=== PATIENT | male | born 1945 | race African-American/Black ===

== ENCOUNTER 2017-03-28 13:09 | Inpatient (IN) | payer MEDICARE, OTHER ==
[~2017-03-28] VITALS: Ht 165.1 cm; Wt 90.7 kg
--- NOTE | 2017-03-28 18:00 | NUR ---
Admitted a 71 y/o male from [facility] with diagnosis of acute CVA. Transported via gurney. Patient is stable, alert, verbally responsive not in any form of acute distress. He denies any pain or discomfort. Family at bedside. Oriented patient and family to room, unit set-up, equipment and staff. Assisted to his needs. Routine admission care done. Reminded patient to use call light for assistance. Call light placed within reach. Informed Dr. Winchester who is in the facility of admission. Dr. Li Cortez, air traffic control specialist center for Dr. Meyers notified of admission and verified orders regarding medication reconciliation.
[2017-03-28] MEDS ORDERED: AMIO200T2 PEG (19:28)
[2017-03-28] MEDS ORDERED: [UNRECOGNIZED DRUG - CODE] IV (19:28)
[2017-03-28] MEDS ORDERED: CLON0.1T PEG (19:28)
[2017-03-28] MEDS ORDERED: POTA10TA15 PEG (19:28)
[2017-03-28] MEDS ORDERED: AMPI3VIA5 IVP (19:28)
[2017-03-28] MEDS ORDERED: DARB40VI SQ (19:28)
[2017-03-28] MEDS ORDERED: WARF7.5T4 PEG (19:28)
[2017-03-28] MEDS ORDERED: CHLO15MO MM (19:28)
[2017-03-28] MEDS ORDERED: ZINC30OI4 TP (19:28)
[2017-03-28] MEDS ORDERED: HYDR118S4 TP (19:28)
[2017-03-28] MEDS ORDERED: METO100T3 PEG (19:28)
[2017-03-28] MEDS ORDERED: [UNRECOGNIZED DRUG - OTHER] (19:28)
[2017-03-28] MEDS ORDERED: LEVE500T20 PEG (19:28)
[2017-03-28] MEDS ORDERED: FURO80TA3 PEG (19:28)
[2017-03-28] MEDS ORDERED: NYST15OI2 TP (19:28)
[2017-03-28] MEDS ORDERED: NITR0.4T48 SL (19:28)
[2017-03-28] MEDS ORDERED: LORA2VIA32 IVP (19:28)
[2017-03-28] MEDS ORDERED: CLON0.2T PEG (19:28)
[2017-03-28] MEDS ORDERED: LISI10TA5 PEG (19:28)
[2017-03-28] MEDS ORDERED: ACET-2154 PEG (19:28)
[2017-03-28] MEDS ORDERED: NITR1PAT8 TD (19:28)
[2017-03-28] MEDS ORDERED: FERR220S2 GT (19:28)
[2017-03-28] MEDS ORDERED: POLY15DR27 OP (19:28)
[2017-03-28] MEDS ORDERED: AMLO10TA2 PEG (19:28)
[2017-03-28] MEDS ORDERED: INSU100V28 (19:28)
[2017-03-28] MEDS ORDERED: HYDR100T27 PEG (19:28)
[2017-03-28] MEDS ORDERED: LANS30CA56 PEG (19:28)
[2017-03-28] MEDS ORDERED: FOLI1TAB16 PEG (19:28)
[2017-03-28] MEDS ORDERED: [UNRECOGNIZED DRUG - CODE] IV (19:28)
[2017-03-28] MEDS ORDERED: HYDR-3326 PEG (19:28)
[2017-03-28] MEDS ORDERED: IPRA0.2S48 IH (19:28)
[2017-03-28] MEDS ORDERED: TETR15DR86 EACHEYE (19:28)
[2017-03-28] MEDS ORDERED: NAPH15DR EACHEYE (19:28)
[2017-03-28] MEDS ORDERED: LABE50DI IV (19:28)
--- NOTE | 2017-03-28 19:30 | NUR ---
RECEIVED PATIENT AWAKE , ALERT AND ORIENTED TO NAME, BIRTHDATE, AND PLACE. REORIENTED TO TIME AND SITUATION. MILD WEAKNESS WITH ALL EXTREMITIES, BUT EQUALLY BILATERALLY. JOSE CRUZ AT 4 MM.FOLLOWS SIMPLE COMMANDS. UNDERSTANDS STATELESS WITH PRIMARY LANGUAGE BEING BANGLADESHI.SPEECH IS CLEAR, BUT HAS SOME DIFFICULTY FINDING WORDS AT TIMES.LEFT EYE APPEARS TO HAVE SLIGHT PTOSIS BUT DOES HAVE A HX OF EYE PROBLEMS REQUIRING EYE DROPS.STATES HE HAS NO VISUAL FIELD DEFICITSASSISTS WITH TURNING SIDE TO SIDE. REQUESTED URINAL AND VOIDED IN URINAL, HOWEVER DUMPED THE BOTTLE OVER IN THE BED.SO I WAS UNABLE TO RETRIEVE URINE FOR ORDERED U/A.REORIENTED TO ROOM, REHAB ROUTINE,POC,CALL LIGHT AND TV.INSTRUCTED TO CALL RN FOR ANY NEEDS HE MAY HAVE. CALL LIGHT WITHIN REACH AAT.
[2017-03-28] MEDS ORDERED: NUT.237L67 GT (19:31)
[2017-03-28] MEDS ORDERED: HYDR20VI4 IVP (19:51)
[2017-03-28] MEDS ORDERED: FOLI0.8T2 GT (19:51)
[2017-03-28] MEDS ORDERED: MORP2SYR IV (19:51)
[2017-03-28 20:21] VITALS: BP 140/84
[2017-03-28] MEDS ORDERED: hydrALAZINE HCL 25 MG TABLET PEG SCH (20:30)
[2017-03-28] MEDS ORDERED: HOME MED MISCELLANEOUS XX SCH (20:30)
[2017-03-28] MEDS ORDERED: CLONIDINE HCL 0.1 MG TABLET PEG PRN (20:30)
[2017-03-28] MEDS ORDERED: HYDROGEN PEROXIDE 3% 118 ML BOTTLE TP PRN (20:30)
[2017-03-28] MEDS ORDERED: NITROGLYCERIN 0.4 MG/TAB BOTTLE SL PRN (20:30)
[2017-03-28] MEDS ORDERED: HOME MED MISCELLANEOUS SQ SCH (20:30)
[2017-03-28] MEDS ORDERED: HYDROCODONE/APAP 5-325MG TABLET PEG PRN (20:30)
[2017-03-28] MEDS ORDERED: INSULIN REGULAR, HUMAN 300 UNIT/3 ML VIAL SQ PRN ×2 (20:30→21:30)
[2017-03-28] MEDS ORDERED: NYSTATIN/TRIAMCINOLONE CREAM 15 GM TUBE TOP SCH (21:00)
[2017-03-28] MEDS ORDERED: DEXTROSE 50% 50 ML DISP.SYRIN IV PRN ×3 (21:30→22:00)
[2017-03-28] MEDS: CHLORHEXIDINE GLUCONATE 15 ML MOUTHWASH MM SCH (21:30)
[2017-03-28] MEDS: AMIODARONE HCL 200 MG TABLET PEG SCH (21:31)
[2017-03-28] MEDS: LEVETIRACETAM 500 MG/5 ML LIQUID UDC PEG SCH (21:32)
[2017-03-28] MEDS: METOPROLOL TARTRATE 100 MG TABLET PEG SCH (21:33)
[2017-03-28] MEDS ORDERED: NYST30OI TP (21:36)
[2017-03-28] MEDS ORDERED: ACETAMINOPHEN 650 MG/20.3 ML LIQUID UDC PEG PRN (21:45)
[2017-03-28] MEDS: CLONIDINE HCL 0.2 MG TABLET PEG SCH (21:47)
[2017-03-28 22:00] VITALS: BP 148/74
[2017-03-28] MEDS: PIPERACILLIN/TAZOBACTAM/D5W 3.375 G in PREMIXED 1 EACH IV SCH (22:17)
[2017-03-28] MEDS: PANTOPRAZOLE ORAL SUSPENSION 40 MG SUSPDR.PKT GT SCH (22:17)
[2017-03-29] MEDS ORDERED: ACETAMINOPHEN 325 MG TABLET PEG SCH
[2017-03-29] MEDS ORDERED: BLOOD SUGAR DIAGNOSTIC 1 EACH STRIP VI SCH
[2017-03-29 00:09] VITALS: BP 116/74
[2017-03-29] MEDS: BLOOD SUGAR DIAGNOSTIC 1 EACH STRIP VI SCH ×4 (00:10→17:44)
--- NOTE | 2017-03-29 00:10 | NUR ---
NOVASOURCE G TUBE FEEDS INITIATED AT 50 ML/HR NO RESIDUALS NOTED.TUBE FEEDS HELD ONE HOUR BEFORE AND ONE HOUR AFTER MEDS GIVEN.G TUBE SITE IS CLEAR AND WITHOUT SIGNS OF INFECTION.CLEANED SITE WITH SOAP AND WATER.HOB ELEVATED AAT WHILE G TUBE FEEDS ARE RUNNING.
[2017-03-29] MEDS: INSULIN REGULAR, HUMAN 300 UNIT/3 ML VIAL SQ PRN ×3 (00:14→17:48)
[2017-03-29] MEDS: NOVASOURCE RENAL 1000 ML LIQUID GT PRN (00:15)
[2017-03-29] MEDS: IPRATROPIUM BROMIDE 0.5 MG/2.5 ML NEBU IH SCH ×4 (01:26→19:48)
[2017-03-29 06:00] VITALS: BP 134/82
--- NOTE | 2017-03-29 06:00 | NUR ---
SLEPT WELL AFTER AMBIEN WAS GIVEN. IN NAD THIS MORNING. NO RESPIRATORY DISTRESS OVER NIGHT ON OXYGEN AT 2 LPM/NASAL CANNULA. CALL LIGHT WITHIN REACH Addendum: 03/30/17 at 0037 by CHRISTIANO CONN RN DOCUMENTED ON WRONG PATIENT. DELETE THIS NOTE
--- NOTE | 2017-03-29 06:00 | NUR ---
TOLERATED G TUBE FEEDS AT 50 ML/HR THIS SHIFT WITH MINIMAL RESIDUALS OF 10-15 ML. NO N/V,ABDOMINAL TENDERNESS OR DISTENTION NOTED.LBM WAS 03/28/17.IVÁN MIDLINE PATENT AND MORNING LABS WERE DRAWN WITHOUT DIFFICULTY THIS MORNING. FLUSHED THEREAFTER WITH NORMAL SALINE. PATENCY MAINTAINED. NO OVERT SIGNS OF ADVERSE REACTION TO NEW ATB GIVEN HERE IN ARU OVER NIGHT.NO ESSENTIAL CHANGES TO NEURO ASSESSMENT FROMMY INITIAL SHIFT ASSESSMENT LAST NIGHT. CALL LIGHT WITHIN REACH AAT. APPEARS CPOMFORTABLE AND WITHOUT C/O
[2017-03-29] MEDS: CLONIDINE HCL 0.2 MG TABLET PEG SCH ×3 (06:19→22:23)
[2017-03-29] MEDS: hydrALAZINE HCL 50 MG TABLET PEG SCH ×4 (06:20→18:04)
--- NOTE | 2017-03-29 06:20 | NUR ---
ACCUCHECK THIS MORNING IS 129. NO INSULIN COVERAGE REQUIRED
[2017-03-29] MEDS: PIPERACILLIN/TAZOBACTAM/D5W 3.375 G in PREMIXED 1 EACH IV SCH (06:21)
[2017-03-29 06:22] LABS: BASOPHILS # (AUTO) 0.1 K/uL (0.0-8.0); BASOPHILS % (AUTO) 0.9 % (0.0-2.0); EOSINOPHILS # (AUTO) 0.4 K/uL (0.0-0.7); HEMOGLOBIN 10.5 G/DL (14.0-18.0); MEAN CORPUSCULAR HGB CONC 34 g/dL (32.0-37.0); MEAN CORPUSCULAR VOLUME 97.2 FL (82.0-92.0); MONOCYTES # (AUTO) 0.6 K/UL (0.1-1.30); MONOCYTES % (AUTO) 7.5 % (0.0-11.0); NEUTROPHILS # (AUTO) 5.4 K/UL (1.8-8.9); NEUTROPHILS % (AUTO) 63.6 % (38.5-71.5); PLATELET COUNT (AUTO) 321 K/UL (150-450); RED BLOOD CELL COUNT(AUTO) 3.19 MIL/UL (4.7-6.1); WHITE BLOOD COUNT (AUTO) 8.5 K/UL (4.0-11.2)
[2017-03-29 06:47] LABS: CREATININE 2.8 mg/dL (0.6-1.3); MAGNESIUM 1.8 mg/dL (1.8-2.4); PHOSPHOROUS 3.7 mg/dL (2.5-4.9)
[2017-03-29 06:52] LABS: POTASSIUM 3.8 mmol/L (3.5-5.1)
[2017-03-29 08:00] VITALS: BP 111/65
[2017-03-29] MEDS: AMLODIPINE 10 MG TABLET PEG SCH (09:00)
[2017-03-29] MEDS: Z GUARD REMEDY PASTE 57 GM TUBE TOP SCH ×2 (09:00→21:02)
[2017-03-29] MEDS: LISINOPRIL 10 MG TABLET PEG SCH (09:00)
[2017-03-29] MEDS: POLYVINYL ALCOHOL OPHT DROPS 15 ML BOTTLE OP SCH ×2 (09:48→17:44)
[2017-03-29] MEDS: PANTOPRAZOLE ORAL SUSPENSION 40 MG SUSPDR.PKT GT SCH ×2 (09:49→21:00)
[2017-03-29] MEDS: FOLIC ACID/VITAMIN B COMP W-C TABLET PEG SCH (09:49)
[2017-03-29] MEDS: LEVETIRACETAM 500 MG/5 ML LIQUID UDC PEG SCH ×2 (09:49→20:59)
[2017-03-29] MEDS: FERROUS SULFATE 300 MG/5 ML LIQUID UDC PEG SCH ×3 (09:49→17:45)
[2017-03-29] MEDS: POTASSIUM CHLORIDE 20 MEQ POWDER PACKET GT SCH (09:49)
[2017-03-29] MEDS: AMIODARONE HCL 200 MG TABLET PEG SCH ×2 (09:57→21:00)
[2017-03-29] MEDS: CHLORHEXIDINE GLUCONATE 15 ML MOUTHWASH MM SCH ×2 (10:00→21:01)
[2017-03-29] MEDS: FOLIC ACID 1 MG TABLET PEG SCH (10:00)
[2017-03-29] MEDS: NAPHAZOLINE/PHENIR OPHT DROP 15 ML BOTTLE EACHEYE SCH ×2 (10:01→17:45)
[2017-03-29] MEDS: FUROSEMIDE 80 MG TABLET PEG SCH (10:01)
[2017-03-29] MEDS: METOPROLOL TARTRATE 100 MG TABLET PEG SCH ×2 (10:03→20:59)
[2017-03-29] MEDS: NITROGLYCERIN 0.3 MG/HR TD SCH (10:05)
[2017-03-29] MEDS: NYSTATIN OINTMENT 15 GM TUBE TOP SCH ×2 (10:06→10:39)
[2017-03-29] MEDS: PIPERACILLIN/TAZOBACTAM/D5W 2.25 G in PREMIXED 1 EACH IV SCH ×2 (12:00→17:45)
[2017-03-29 15:28] LABS: *BILIRUBIN,URIN NEGATIVE (NEGATIVE); *BLOOD, URINE 1+ (NEGATIVE); *COLOR,URINE YELLOW (YELLOW); *KETONES,URINE NEGATIVE (NEGATIVE); *PROTEIN,URINE 1+ (NEGATIVE); *UROBILINOGEN,URINE 0.2 E.U./dl (NORMAL); LEUKOCYTE ESTERASE ,URINE 2+ (NEGATIVE); NITRITE, URINE NEGATIVE (NEGATIVE); UGLUCOSE NEGATIVE (NEGATIVE)
[2017-03-29 15:36] LABS: *CLARITY,URINE HAZY (CLEAR)
[2017-03-29 16:20] LABS: BACTERIA,URINE FEW /HPF (NONE SEEN); MUCUS,URINE FEW /LPF (0-FEW); RBC,URINE 20-50 /HPF (0-3); SQUAMOUS EPITHELIAL CELL,UR FEW /HPF (NONE SEEN); WBC,URINE 20-50 /HPF (0-3)
[2017-03-29] MEDS ORDERED: WARFARIN SODIUM 7.5 MG TABLET PEG SCH (17:00)
--- NOTE | 2017-03-29 18:48 | NUR ---
pt seen and stroke assessment done. pt provided meds and adhered to therapy and exercise. pt shows right side weakness and slow gaze during assessment. no signs of complications. pt provided blood sugar meds and provided anitbiotics. pt tolerated therapy without oxygen 92%. pt provided 2L. pt is seen by family and will continue to endorse any new treatments.
--- NOTE | 2017-03-29 19:30 | NUR ---
RECEIVED PATIENT AWAKE, ALERT AND ORIENTED TO NAME AND BIRTHDAY, AND SOMETIMES PLACE.REORIETED TO TIME AND SITUATION.IS INCONTINENT OF URINE IN DIAPER/ CHANGED AND KEPT CLEAN AND DRY.SKIN CONTINUES WITH DRY RASHES AT GROINS AND SACRUM, AND LEFT POSTERIOR BACK. NO OPEN AREAS OR DRAINAGE NOTED.COMFORTABLE, AND WITHOUT C/O PAIN OR SOB.MAINTAINED ON OXYGEN AT 2 LPM/NASAL CANNULA WITH SATS GREATER THAN 92%. CALL LIGHT WITHIN REACH AND BED ALARM ON AAT INSTRUCTED PATIENT TO CALL FOR ANY REQUESTS NEEDED
[2017-03-29 20:00] VITALS: BP 129/86
[2017-03-29 23:58] VITALS: BP 112/74
[2017-03-30] MEDS: BLOOD SUGAR DIAGNOSTIC 1 EACH STRIP VI SCH ×4 (00:03→19:03)
[2017-03-30] MEDS: PIPERACILLIN/TAZOBACTAM/D5W 2.25 G in PREMIXED 1 EACH IV SCH ×4 (00:04→19:03)
[2017-03-30] MEDS: IPRATROPIUM BROMIDE 0.5 MG/2.5 ML NEBU IH SCH ×3 (00:42→19:58)
[2017-03-30 05:45] VITALS: BP 136/82
[2017-03-30] MEDS: CLONIDINE HCL 0.2 MG TABLET PEG SCH ×3 (05:51→21:18)
[2017-03-30] MEDS: hydrALAZINE HCL 50 MG TABLET PEG SCH ×4 (05:51→19:03)
[2017-03-30] MEDS: INSULIN REGULAR, HUMAN 300 UNIT/3 ML VIAL SQ PRN (05:58)
--- NOTE | 2017-03-30 06:00 | NUR ---
SLEPT WELL LAST NIGHT. TOLERATED G TUBE FEEDS WITH MINIMAL RESIDUALS OF 10 ML. NO C/O NAUSEA OR EMESIS OR ABDOMINAL DISTENTION.FEEDS CONTINUE AT 50 ML/HR/ NOVASOURCE. NO SIGNS OF ASPIRATION. VITALS ARE STABLE THIS MORNING.NO C/O PAIN OR RESPIRATORY DISTRESS THIS SHIFT. O2 WEANED OFF TO ROOM AIR WITH SATS OVER 95%. INCONTINENT OF URINE AT TIMES, WITH ALSO VOIDING IN SMALL AMOUNTS AFTER REQUESTING FOR HELP WITH HIS URINAL. CALL LIGHT WITHIN REACH ATT.BED ALARM ON. IN nad AT THIS TIME
--- NOTE | 2017-03-30 07:17 | NUR ---
Patient received from shift production associate, resting comfortably in bed, in stable condition, no signs of acute distress noted. Respirations even and unlabored, VS WNL, O2 sat WNL on RA. Tolerating G-tube feedings with minimal residual of 10mL. No complaints of nausea or emesis. Feeding continuing Novasource at 50mL/HR. G-tube dressing clean, dry, and intact. No other verbalized needs at this time, all needs met. Safety and fall precautions maintained, call light within reach.
[2017-03-30] MEDS: PANTOPRAZOLE ORAL SUSPENSION 40 MG SUSPDR.PKT GT SCH ×2 (09:16→21:16)
[2017-03-30] MEDS: FOLIC ACID/VITAMIN B COMP W-C TABLET PEG SCH (09:16)
[2017-03-30] MEDS: POTASSIUM CHLORIDE 20 MEQ POWDER PACKET GT SCH (09:16)
[2017-03-30] MEDS: AMLODIPINE 10 MG TABLET PEG SCH (09:17)
[2017-03-30] MEDS: METOPROLOL TARTRATE 100 MG TABLET PEG SCH ×2 (09:17→21:18)
[2017-03-30] MEDS: AMIODARONE HCL 200 MG TABLET PEG SCH ×2 (09:17→21:17)
[2017-03-30] MEDS: FUROSEMIDE 80 MG TABLET PEG SCH (09:18)
[2017-03-30] MEDS: LISINOPRIL 10 MG TABLET PEG SCH (09:18)
[2017-03-30] MEDS: LEVETIRACETAM 500 MG/5 ML LIQUID UDC PEG SCH ×2 (09:18→21:16)
[2017-03-30] MEDS: CHLORHEXIDINE GLUCONATE 15 ML MOUTHWASH MM SCH ×2 (09:18→21:17)
[2017-03-30] MEDS: FERROUS SULFATE 300 MG/5 ML LIQUID UDC PEG SCH ×3 (09:18→17:43)
[2017-03-30] MEDS: FOLIC ACID 1 MG TABLET PEG SCH (09:18)
[2017-03-30] MEDS: NAPHAZOLINE/PHENIR OPHT DROP 15 ML BOTTLE EACHEYE SCH ×2 (09:19→17:43)
[2017-03-30] MEDS: TETRAHYDROZOLINE 0.05% OPHT DR 15 ML BOTTLE EACHEYE PRN (09:19)
[2017-03-30] MEDS: NITROGLYCERIN 0.3 MG/HR TD SCH (09:19)
[2017-03-30] MEDS: POLYVINYL ALCOHOL OPHT DROPS 15 ML BOTTLE OP SCH ×2 (09:19→17:43)
[2017-03-30] MEDS: Z GUARD REMEDY PASTE 57 GM TUBE TOP SCH ×2 (10:56→21:18)
[2017-03-30] MEDS: NYSTATIN OINTMENT 15 GM TUBE TOP SCH ×2 (10:56→21:19)
[2017-03-30 12:09] VITALS: BP 112/66
--- NOTE | 2017-03-30 13:45 | NUR ---
Dr. Whipple seen at bedside, discussed regarding tube feeding, to order an FNS consult for calorie counting and stop tube feedings, and see if able to tolerate diet without tube feedings. Patient and family made aware, verbalized understanding.
[2017-03-30] MEDS ORDERED: HEPARIN/D5W DRIP 500 ML IV PRN (14:15)
--- NOTE | 2017-03-30 15:00 | NUR ---
Received call from radiology regarding ordered CT scan, results verified with radiology regarding 2 subacute hemorrhages seen. Called Dr. Lynch via exchange phone number, told to call Dr. Whipple regarding results. Called and reached Dr. Whipple, said he is aware of the 2 subacute hemorrhages and to continue heparin drip as per ordered. motor vehicle assembly supervisor contacted regarding start and care of heparin drip. Awaiting further instructions.
--- NOTE | 2017-03-30 15:30 | NUR ---
Spoke to warehouse associate driver regarding plan of care, stated he will follow up with pharmacy regarding protocol of heparin drip. Awaiting orders to transfer to tele unit for tele monitoring vs starting and continuing heparin drip on ARU.
--- NOTE | 2017-03-30 16:10 | NUR ---
Received call from house fellow to start heparin drip here in ARU and monitor closely for signs of adverse bleeding. 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 Awaiting heparin bag to start infusion.
[2017-03-30] MEDS ORDERED: ENOXAPARIN SODIUM 30 MG/0.3 ML DISP.SYRIN SUBCUT SCH (17:00)
--- NOTE | 2017-03-30 17:00 | NUR ---
Heparin drip started per protocol. Verified with pharmacy and 2nd nurse. VS WNL, 120/73, 63, 95% on 2L O2 via NS. No other signs of acute distress, no signs of bleeding noted. Patient resting comfortably in bed, dosing intermittently in and out of light sleep, arousable with voice and light touch. Will continue to monitor for signs of bleeding.
[2017-03-30] MEDS: HEPARIN/D5W DRIP 500 ML IV PRN (17:09)
[2017-03-30] MEDS: WARFARIN SODIUM 2 MG TABLET PEG SCH (17:43)
[2017-03-30 20:47] VITALS: BP 118/71
--- NOTE | 2017-03-30 23:49 | NUR ---
Patient PTT results noted to be 35.9. Heparin dosing orders followed as ordered. Verified with 2nd nurse. Will continue to monitor patient.
[2017-03-31] MEDS: BLOOD SUGAR DIAGNOSTIC 1 EACH STRIP VI SCH ×4 (00:35→16:54)
[2017-03-31] MEDS: PIPERACILLIN/TAZOBACTAM/D5W 2.25 G in PREMIXED 1 EACH IV SCH ×4 (00:36→18:53)
[2017-03-31] MEDS: IPRATROPIUM BROMIDE 0.5 MG/2.5 ML NEBU IH SCH ×4 (00:49→19:15)
[2017-03-31] MEDS: hydrALAZINE HCL 50 MG TABLET PEG SCH ×4 (06:37→18:52)
[2017-03-31] MEDS: CLONIDINE HCL 0.2 MG TABLET PEG SCH ×3 (06:39→21:26)
--- NOTE | 2017-03-31 06:58 | NUR ---
Patient is awake and verbally responsive. Able to make needs known. Denies any pain and discomfort. No acute distress. No SOB. AM meds given. Lab in room to draw blood for PTT. Blood sugar is 99. No coverage needed. No s/s of hypoglycemia at this time. Kept clean and dry. Midline site dry and intact. No s/s of bleeding. All needs attended to promptly. Call light within reach. Will continue to monitor.
[2017-03-31] MEDS: FOLIC ACID/VITAMIN B COMP W-C TABLET PEG SCH (09:00)
[2017-03-31] MEDS: AMIODARONE HCL 200 MG TABLET PEG SCH ×2 (09:00→20:36)
[2017-03-31] MEDS: NAPHAZOLINE/PHENIR OPHT DROP 15 ML BOTTLE EACHEYE SCH ×2 (09:00→16:55)
[2017-03-31] MEDS: NYSTATIN OINTMENT 15 GM TUBE TOP SCH ×2 (09:00→20:37)
[2017-03-31] MEDS: Z GUARD REMEDY PASTE 57 GM TUBE TOP SCH ×2 (09:00→20:37)
[2017-03-31] MEDS: POLYVINYL ALCOHOL OPHT DROPS 15 ML BOTTLE OP SCH ×2 (09:00→16:55)
[2017-03-31 10:13] VITALS: BP 120/70
[2017-03-31] MEDS: NOVASOURCE RENAL 1000 ML LIQUID GT PRN (12:17)
[2017-03-31] MEDS: TETRAHYDROZOLINE 0.05% OPHT DR 15 ML BOTTLE EACHEYE PRN ×2 (12:17→12:34)
[2017-03-31] MEDS: HEPARIN/D5W DRIP 500 ML IV PRN ×2 (12:22→12:36)
[2017-03-31] MEDS: PANTOPRAZOLE ORAL SUSPENSION 40 MG SUSPDR.PKT GT SCH ×2 (12:37→20:35)
[2017-03-31] MEDS: POTASSIUM CHLORIDE 20 MEQ POWDER PACKET GT SCH (12:37)
[2017-03-31] MEDS: AMLODIPINE 10 MG TABLET PEG SCH (12:38)
[2017-03-31] MEDS: CHLORHEXIDINE GLUCONATE 15 ML MOUTHWASH MM SCH ×2 (12:38→20:35)
[2017-03-31] MEDS: NITROGLYCERIN 0.3 MG/HR TD SCH (12:39)
[2017-03-31] MEDS: LISINOPRIL 10 MG TABLET PEG SCH (12:39)
[2017-03-31] MEDS: METOPROLOL TARTRATE 100 MG TABLET PEG SCH ×2 (12:40→20:35)
[2017-03-31] MEDS: FOLIC ACID 1 MG TABLET PEG SCH (12:41)
[2017-03-31] MEDS: LEVETIRACETAM 500 MG/5 ML LIQUID UDC PEG SCH ×2 (12:41→20:35)
[2017-03-31] MEDS: FERROUS SULFATE 300 MG/5 ML LIQUID UDC PEG SCH ×3 (12:41→18:51)
[2017-03-31] MEDS: FUROSEMIDE 80 MG TABLET PEG SCH (12:42)
[2017-03-31] MEDS ORDERED: IPRATROPIUM BROMIDE 0.5 MG/2.5 ML NEBU IH SCH (13:30)
[2017-03-31] MEDS: WARFARIN SODIUM 2 MG TABLET PEG SCH (18:51)
[2017-03-31 20:09] VITALS: BP 130/80
[2017-04-01] MEDS: PIPERACILLIN/TAZOBACTAM/D5W 2.25 G in PREMIXED 1 EACH IV SCH ×4 (00:16→18:05)
[2017-04-01] MEDS: BLOOD SUGAR DIAGNOSTIC 1 EACH STRIP VI SCH ×4 (00:17→18:06)
[2017-04-01] MEDS: hydrALAZINE HCL 50 MG TABLET PEG SCH ×4 (00:19→18:12)
[2017-04-01] MEDS: IPRATROPIUM BROMIDE 0.5 MG/2.5 ML NEBU IH SCH ×4 (00:34→19:15)
[2017-04-01] MEDS: HEPARIN/D5W DRIP 500 ML IV PRN ×2 (04:37→20:45)
[2017-04-01] MEDS: CLONIDINE HCL 0.2 MG TABLET PEG SCH ×3 (06:13→22:46)
--- NOTE | 2017-04-01 07:45 | NUR ---
Awake, alert, oriented x 3, able to verbalized needs and follow commands, able to move all extremities on purpose. Heparin drip infusing to midline LUE. PTT= 68.1, No change in rate of 1600 units at 32 ml/hr.
[2017-04-01 08:00] VITALS: BP 130/69
[2017-04-01] MEDS: NAPHAZOLINE/PHENIR OPHT DROP 15 ML BOTTLE EACHEYE SCH ×2 (09:20→18:05)
[2017-04-01] MEDS: TETRAHYDROZOLINE 0.05% OPHT DR 15 ML BOTTLE EACHEYE PRN (09:20)
[2017-04-01] MEDS: POLYVINYL ALCOHOL OPHT DROPS 15 ML BOTTLE OP SCH ×2 (09:21→18:04)
[2017-04-01] MEDS: PANTOPRAZOLE ORAL SUSPENSION 40 MG SUSPDR.PKT GT SCH ×2 (09:21→21:35)
[2017-04-01] MEDS: POTASSIUM CHLORIDE 20 MEQ POWDER PACKET GT SCH (09:21)
[2017-04-01] MEDS: AMLODIPINE 10 MG TABLET PEG SCH (09:22)
[2017-04-01] MEDS: LISINOPRIL 10 MG TABLET PEG SCH (09:23)
[2017-04-01] MEDS: NITROGLYCERIN 0.3 MG/HR TD SCH (09:23)
[2017-04-01] MEDS: FUROSEMIDE 80 MG TABLET PEG SCH (09:24)
[2017-04-01] MEDS: FOLIC ACID 1 MG TABLET PEG SCH (09:24)
[2017-04-01] MEDS: METOPROLOL TARTRATE 100 MG TABLET PEG SCH ×2 (09:24→21:19)
[2017-04-01] MEDS: LEVETIRACETAM 500 MG/5 ML LIQUID UDC PEG SCH ×2 (09:24→21:33)
[2017-04-01] MEDS: FOLIC ACID/VITAMIN B COMP W-C TABLET PEG SCH (09:24)
[2017-04-01] MEDS: CHLORHEXIDINE GLUCONATE 15 ML MOUTHWASH MM SCH ×2 (09:25→21:18)
[2017-04-01] MEDS: FERROUS SULFATE 300 MG/5 ML LIQUID UDC PEG SCH ×3 (09:25→18:05)
[2017-04-01] MEDS: AMIODARONE HCL 200 MG TABLET PEG SCH ×2 (09:25→21:18)
[2017-04-01] MEDS: NYSTATIN OINTMENT 15 GM TUBE TOP SCH ×2 (09:26→21:23)
[2017-04-01] MEDS: Z GUARD REMEDY PASTE 57 GM TUBE TOP SCH ×2 (09:27→21:24)
--- NOTE | 2017-04-01 09:48 | NUR ---
Back from PT, assisted to the bathroom. Medication given. GT site Trach site, cleaned and dressing change
--- NOTE | 2017-04-01 14:00 | NUR ---
MEDICAL BILLER at bedside, passed for regular diet, thin liquids
--- NOTE | 2017-04-01 16:11 | NUR ---
Assistant Professor Of Psychology: SW met with patient at bedside to assess needs and provide support. Pt is a 71-year-old male admitted to ARU for CVA, and presented with chief complaint of weakness and difficulty performing ADLs. Pt appeared irritable and aggravated, and stated "everytime I sleep, someone comes in" and "I'm sleepy." SW later returned when pt's , Emily [phone] was at bedside. Per , the pt has a strong support system at home. She reported she and her both live in a Intermediate Apartment. Pt reported their son, Geraldo [phone] is very involved and supportive with their care. reported she may need assistance with DME upon discharge. Additionalyl, pt appears to be having a difficult time coping with functional decline and impaired ambulation. There is no hx of depression noted or reported by family. SW will provide support to pt and family during hospitalization. SW will provide linkage to resources (case management, outside referrals all come under this.
--- NOTE | 2017-04-01 16:20 | NUR ---
Conference Director: SW met with patient at bedside to assess needs and provide support. Pt is a 71-year-old male admitted to ARU for CVA, and presented with chief complaint of weakness and difficulty performing ADLs. Pt appeared irritable and aggravated, and stated "everytime I sleep, someone comes in" and "I'm sleepy." SW later returned when pt's , Emily [phone] was at bedside. Per , the pt has a strong support system at home. She reported she and her both live in a [address] Apart[address]. Pt reported their son, Geraldo [phone] is very involved and supportive with their care. reported she may need assistance with DME upon discharge. Pt appeared to be having a difficult time coping with functional decline and impaired ambulation. He declined to meet with SW at this time, therefore information was obtained through his . There is no hx of depression noted or reported by family. SW will provide support to pt and family during hospitalization. SW will provide linkage to resources (case management). SW will provide supportive counseling to address patients issues of loss related to his decline in functioning, hospitalization on the unit, and recent stroke. SW will provide referrals for outpatient treatment for counseling (stroke support).
--- NOTE | 2017-04-01 16:30 | NUR ---
Bed bath given. Repositioned comfortably
[2017-04-01] MEDS ORDERED: WARFARIN SODIUM 2 MG TABLET PEG SCH (17:00)
[2017-04-01] MEDS ORDERED: WARFARIN SODIUM 3 MG TABLET PEG SCH (17:00)
--- NOTE | 2017-04-01 18:00 | NUR ---
Regular diet served, assisted by spouse, able to consume 80% of food served. Kept dry and comfortable.
--- NOTE | 2017-04-01 19:15 | NUR ---
REC'D BEDSIDE REPORT, PT COMFORTABLE WATCHING THE TV. HAPARIN INFUSING VIA IV PUMP.
[2017-04-01 20:00] VITALS: BP 105/64
[2017-04-01] MEDS: Z GUARD REMEDY PASTE 57 GM TUBE TOP PRN (21:21)
[2017-04-02] MEDS: PIPERACILLIN/TAZOBACTAM/D5W 2.25 G in PREMIXED 1 EACH IV SCH ×5 (00:07→23:36)
[2017-04-02] MEDS: hydrALAZINE HCL 50 MG TABLET PEG SCH ×2 (00:08→06:25)
[2017-04-02] MEDS: BLOOD SUGAR DIAGNOSTIC 1 EACH STRIP VI SCH ×5 (00:15→23:36)
[2017-04-02] MEDS: IPRATROPIUM BROMIDE 0.5 MG/2.5 ML NEBU IH SCH ×4 (01:23→19:19)
[2017-04-02] MEDS: CLONIDINE HCL 0.2 MG TABLET PEG SCH (06:26)
[2017-04-02 06:44] VITALS: BP 126/75
--- NOTE | 2017-04-02 07:16 | NUR ---
BEDSIDE SBAR REPORT TO URBANO COLUNGA. PT PROGRESSING TOWARDS GOALS, CONTINUE PLAN OF CARE.
[2017-04-02 07:35] LABS: BASOPHILS % (AUTO) 0.6 % (0.0-2.0); EOSINOPHILS # (AUTO) 0.3 K/uL (0.0-0.7); EOSINOPHILS % (AUTO) 3.4 % (0.0-7.0); HEMATOCRIT 31.1 % (40-50); HEMOGLOBIN 10.5 G/DL (14.0-18.0); LYMPHOCYTES # (AUTO) 1.9 K/UL (0.8-4.8); LYMPHOCYTES % (AUTO) 25.4 % (20.5-51.5); MEAN CORPUSCULAR HEMOGLOBIN 31.6 UUG (27.0-31.0); MEAN CORPUSCULAR HGB CONC 34 g/dL (32.0-37.0); MEAN CORPUSCULAR VOLUME 93.2 FL (82.0-92.0); MONOCYTES # (AUTO) 0.6 K/UL (0.1-1.30); MONOCYTES % (AUTO) 7.8 % (0.0-11.0); NEUTROPHILS # (AUTO) 4.8 K/UL (1.8-8.9); NEUTROPHILS % (AUTO) 62.8 % (38.5-71.5); PLATELET COUNT (AUTO) 277 K/UL (150-450); RED BLOOD CELL COUNT(AUTO) 3.33 MIL/UL (4.7-6.1); WHITE BLOOD COUNT (AUTO) 7.6 K/UL (4.0-11.2)
--- NOTE | 2017-04-02 07:54 | NUR ---
Awake, alert, oriented x 3, on moderate high back rest. Heparin drip infusing at 1600 units at 32 ml/hr to LUE midline. Waiting for PTT report. Bed alarm on
[2017-04-02 08:00] VITALS: BP 123/77
[2017-04-02 08:12] LABS: BILIRUBIN,TOTAL 0.4 mg/dL (0.2-1.0); CREATININE 2.7 mg/dL (0.6-1.3); MAGNESIUM 1.3 mg/dL (1.8-2.4); PHOSPHOROUS 4.2 mg/dL (2.5-4.9); POTASSIUM 3.3 mmol/L (3.5-5.1); TOTAL PROTEIN, SERUM 8.3 g/dL (6.4-8.2)
--- NOTE | 2017-04-02 09:18 | NUR ---
Received PTT Report. Heparin adjusted/decreased to 1400 units/hr.
[2017-04-02] MEDS: NAPHAZOLINE/PHENIR OPHT DROP 15 ML BOTTLE EACHEYE SCH ×2 (09:37→18:16)
[2017-04-02] MEDS: PANTOPRAZOLE ORAL SUSPENSION 40 MG SUSPDR.PKT GT SCH (09:44)
[2017-04-02] MEDS: POLYVINYL ALCOHOL OPHT DROPS 15 ML BOTTLE OP SCH ×2 (09:44→18:16)
[2017-04-02] MEDS: POTASSIUM CHLORIDE 20 MEQ POWDER PACKET GT SCH (09:44)
[2017-04-02] MEDS: CHLORHEXIDINE GLUCONATE 15 ML MOUTHWASH MM SCH ×2 (09:44→20:51)
[2017-04-02] MEDS: LEVETIRACETAM 500 MG/5 ML LIQUID UDC PEG SCH (09:45)
[2017-04-02] MEDS: FOLIC ACID 1 MG TABLET PEG SCH (09:45)
[2017-04-02] MEDS: FUROSEMIDE 80 MG TABLET PEG SCH (09:45)
[2017-04-02] MEDS: FERROUS SULFATE 300 MG/5 ML LIQUID UDC PEG SCH (09:45)
[2017-04-02] MEDS: AMIODARONE HCL 200 MG TABLET PEG SCH (09:45)
[2017-04-02] MEDS: FOLIC ACID/VITAMIN B COMP W-C TABLET PEG SCH (09:46)
[2017-04-02] MEDS: AMLODIPINE 10 MG TABLET PEG SCH (09:46)
[2017-04-02] MEDS: METOPROLOL TARTRATE 100 MG TABLET PEG SCH (09:46)
[2017-04-02] MEDS: NITROGLYCERIN 0.3 MG/HR TD SCH (09:47)
[2017-04-02] MEDS: LISINOPRIL 10 MG TABLET PEG SCH (09:47)
[2017-04-02] MEDS: NYSTATIN OINTMENT 15 GM TUBE TOP SCH ×2 (09:48→20:53)
[2017-04-02] MEDS: Z GUARD REMEDY PASTE 57 GM TUBE TOP SCH ×2 (09:48→20:53)
--- NOTE | 2017-04-02 10:15 | NUR ---
Discussed with Pharmacist, Heparin drip dose adjusted according 80 kg weight, rate changed to 1450 units at 29 ml/hr
--- NOTE | 2017-04-02 11:00 | NUR ---
Bed bath given. Repositioned comfortably.
[2017-04-02] MEDS ORDERED: HYDROCODONE/APAP 5-325MG TABLET PO PRN (12:00)
[2017-04-02] MEDS ORDERED: CLONIDINE HCL 0.1 MG TABLET PO PRN (12:00)
[2017-04-02] MEDS ORDERED: ACETAMINOPHEN 650 MG/20.3 ML LIQUID UDC PO PRN (12:00)
[2017-04-02] MEDS ORDERED: ACETAMINOPHEN 325 MG TABLET PO PRN (12:45)
[2017-04-02] MEDS: FERROUS SULFATE 325 MG TABEC PO SCH ×2 (12:51→18:16)
[2017-04-02] MEDS ORDERED: FERROUS SULFATE 300 MG/5 ML LIQUID UDC PO SCH (13:00)
[2017-04-02] MEDS: hydrALAZINE HCL 50 MG TABLET PO SCH ×3 (13:03→23:38)
[2017-04-02] MEDS: INSULIN REGULAR, HUMAN 300 UNIT/3 ML VIAL SQ PRN (13:05)
[2017-04-02] MEDS ORDERED: POTASSIUM CHLORIDE 20 MEQ TAB.PRT.SR PO ONE (13:30)
--- NOTE | 2017-04-02 13:30 | NUR ---
Mg 1.3; K 3.3. K dur and Mag Ox po given as ordered.
[2017-04-02] MEDS: MAGNESIUM OXIDE 400 MG TABLET PO SCH ×2 (13:52→18:17)
[2017-04-02] MEDS: HEPARIN/D5W DRIP 500 ML IV PRN (13:57)
[2017-04-02] MEDS: CLONIDINE HCL 0.2 MG TABLET PO SCH ×2 (14:00→22:21)
[2017-04-02] MEDS ORDERED: WARFARIN SODIUM 3 MG TABLET PO SCH ×2 (17:00)
[2017-04-02] MEDS: PANTOPRAZOLE SODIUM 40 MG TABLET.DR PO SCH (18:17)
[2017-04-02] MEDS: WARFARIN SODIUM 10 MG TABLET PO SCH (18:18)
--- NOTE | 2017-04-02 18:56 | NUR ---
Assisted to the bathroom with loose BM. Back to bed, repositioned comfortably. /family at bedside
--- NOTE | 2017-04-02 19:30 | NUR ---
RESTING IN BED COMFORTABLY. FAMILY MEMBERS AT BEDSIDE. NO ACUTE DISTRESS NOTED. SAFETY INITIATED. ON HEPARIN DRIP RUNNING AT 1450 UNITS/HR (29CC/HR). WILL CONTINUE TO MONITOR
[2017-04-02] MEDS: AMIODARONE HCL 200 MG TABLET PO SCH (20:51)
[2017-04-02] MEDS: LEVETIRACETAM 500 MG TABLET PO SCH (20:52)
[2017-04-02] MEDS: METOPROLOL TARTRATE 100 MG TABLET PO SCH (20:52)
[2017-04-02] MEDS ORDERED: PANTOPRAZOLE ORAL SUSPENSION 40 MG SUSPDR.PKT PO SCH (21:00)
[2017-04-02] MEDS ORDERED: LEVETIRACETAM 500 MG/5 ML LIQUID UDC PO SCH (21:00)
[2017-04-02 21:05] VITALS: BP 132/80
--- NOTE | 2017-04-02 23:39 | NUR ---
HYDRALAZINE NOT GIVEN, PATIENT IS SLEEPY, CAN BE AWAKEN BUT EASILY FALLS BACK TO SLEEP. BP TAKEN AND RECORDED
[2017-04-03] MEDS: IPRATROPIUM BROMIDE 0.5 MG/2.5 ML NEBU IH SCH ×4 (01:13→19:32)
[2017-04-03] MEDS: PIPERACILLIN/TAZOBACTAM/D5W 2.25 G in PREMIXED 1 EACH IV SCH ×3 (06:01→17:00)
[2017-04-03] MEDS: PANTOPRAZOLE SODIUM 40 MG TABLET.DR PO SCH ×2 (06:02→16:37)
[2017-04-03] MEDS: hydrALAZINE HCL 50 MG TABLET PO SCH ×3 (06:02→16:38)
[2017-04-03] MEDS: CLONIDINE HCL 0.2 MG TABLET PO SCH ×3 (06:02→21:31)
[2017-04-03] MEDS: BLOOD SUGAR DIAGNOSTIC 1 EACH STRIP VI SCH ×3 (06:03→16:59)
--- NOTE | 2017-04-03 06:39 | NUR ---
SLEPT INTERMITTENTLY DURING THE SHIFT. ALERT BUT FORGETFUL, CONVERSANT. NO SPEECH DIFFICULTY. CONTINUES ON HEPARIN DRIP AT 29CC/HR (1450 UNITS/HR). NO S/SX OF BLEEDING NOTED. KEPT CLEAN AND DRY AT ALL TIMES. ALL DUE MEDS GIVEN ORDERED. SKIN CARE PROVIDED. CALL LIGHT WITHIN REACH.
--- NOTE | 2017-04-03 07:28 | NUR ---
UNABLE TO FILL UP IV SPREADSHEET IN REGARDS TO HEPARIN DRIP. FROM 1930 TO 2358 ON 04/02/17 145CC WAS INFUSED. AND FROM 0000 TO 0600 TODAY, 174CC WAS INFUSED. PHARMACY AND INCOMING SHIFT MADE AWARE
[2017-04-03 08:00] VITALS: BP 125/73
--- NOTE | 2017-04-03 08:30 | NUR ---
PT.A/A/OX3 EATING LUNCH,WATCHING TV,NO S/S OF DISTRESS ,DENIES PAIN @ TIME.
[2017-04-03] MEDS: HEPARIN/D5W DRIP 500 ML IV PRN (08:52)
[2017-04-03] MEDS: FERROUS SULFATE 325 MG TABEC PO SCH ×3 (08:52→16:39)
[2017-04-03] MEDS: POTASSIUM CHLORIDE 20 MEQ TAB.PRT.SR PO SCH (08:53)
[2017-04-03] MEDS: FOLIC ACID/VITAMIN B COMP W-C TABLET PO SCH (08:53)
[2017-04-03] MEDS: LISINOPRIL 10 MG TABLET PO SCH (08:53)
[2017-04-03] MEDS: AMLODIPINE 10 MG TABLET PO SCH (08:54)
[2017-04-03] MEDS: AMIODARONE HCL 200 MG TABLET PO SCH ×2 (08:54→21:27)
[2017-04-03] MEDS: FOLIC ACID 1 MG TABLET PO SCH (08:54)
[2017-04-03] MEDS: LEVETIRACETAM 500 MG TABLET PO SCH ×2 (08:54→21:27)
[2017-04-03] MEDS: FUROSEMIDE 80 MG TABLET PO SCH (08:55)
[2017-04-03] MEDS: CHLORHEXIDINE GLUCONATE 15 ML MOUTHWASH MM SCH ×2 (08:55→21:29)
[2017-04-03] MEDS: METOPROLOL TARTRATE 100 MG TABLET PO SCH ×2 (08:55→21:27)
[2017-04-03] MEDS: NITROGLYCERIN 0.3 MG/HR TD SCH (08:56)
[2017-04-03] MEDS: TETRAHYDROZOLINE 0.05% OPHT DR 15 ML BOTTLE EACHEYE PRN ×2 (08:57→16:41)
[2017-04-03] MEDS: POLYVINYL ALCOHOL OPHT DROPS 15 ML BOTTLE OP SCH ×2 (08:57→16:41)
[2017-04-03] MEDS: Z GUARD REMEDY PASTE 57 GM TUBE TOP SCH ×2 (08:58→21:28)
[2017-04-03] MEDS: NAPHAZOLINE/PHENIR OPHT DROP 15 ML BOTTLE EACHEYE SCH ×2 (08:58→16:41)
[2017-04-03] MEDS: NYSTATIN OINTMENT 15 GM TUBE TOP SCH ×2 (08:59→21:28)
[2017-04-03] MEDS ORDERED: POTASSIUM CHLORIDE 20 MEQ POWDER PACKET PO SCH (09:00)
[2017-04-03] MEDS: INSULIN REGULAR, HUMAN 300 UNIT/3 ML VIAL SQ PRN (12:19)
--- NOTE | 2017-04-03 14:24 | NUR ---
FAMILY MEMBERS AT BEDSIDE,UPDATED WITH PT.PLAN OF CARE,NO CHANGES IN PT.CONDITION.
--- NOTE | 2017-04-03 14:37 | NUR ---
TEAM CONFERENCE MEETING 04/03/17
--- NOTE | 2017-04-03 14:42 | NUR ---
pt.SBP 103 AT BEDSIDE,REFUSED FROM CLONIDINE MED.
[2017-04-03] MEDS: WARFARIN SODIUM 10 MG TABLET PO SCH (16:39)
--- NOTE | 2017-04-03 18:05 | NUR ---
PT.WAS SEEN BY ,FAMILY AT BEDSIDE UPDATED WITH PT.CONDITION AND PLAN OF CARE.
--- NOTE | 2017-04-03 18:44 | NUR ---
PT.WATCHING TV NO S/S OF ACUTE DISTRESS OR PAIN NOTED.
[2017-04-03 21:08] VITALS: BP 126/74
[2017-04-03 21:40] VITALS: BP 126/74
[2017-04-03 23:24] VITALS: BP 130/86
[2017-04-04] MEDS: BLOOD SUGAR DIAGNOSTIC 1 EACH STRIP VI SCH ×4 (00:09→17:27)
[2017-04-04] MEDS: hydrALAZINE HCL 50 MG TABLET PO SCH ×4 (00:09→17:27)
[2017-04-04] MEDS: PIPERACILLIN/TAZOBACTAM/D5W 2.25 G in PREMIXED 1 EACH IV SCH ×4 (00:09→17:24)
[2017-04-04] MEDS: IPRATROPIUM BROMIDE 0.5 MG/2.5 ML NEBU IH SCH ×4 (00:55→20:10)
[2017-04-04] MEDS ORDERED: HEPARIN/D5W DRIP 500 ML ONE (01:55)
[2017-04-04] MEDS: HEPARIN/D5W DRIP 500 ML IV PRN (03:47)
--- NOTE | 2017-04-04 05:28 | NUR ---
PT RESTING QUIETLY; ASSISTANCE TO THE BR PERIODICALLY; NO COMPLAINTS OF PAIN NOTED
[2017-04-04] MEDS: CLONIDINE HCL 0.2 MG TABLET PO SCH ×3 (06:37→21:02)
[2017-04-04] MEDS: PANTOPRAZOLE SODIUM 40 MG TABLET.DR PO SCH ×2 (06:38→17:26)
[2017-04-04] MEDS: FUROSEMIDE 80 MG TABLET PO SCH (08:45)
[2017-04-04] MEDS: NAPHAZOLINE/PHENIR OPHT DROP 15 ML BOTTLE EACHEYE SCH ×2 (08:45→17:25)
[2017-04-04] MEDS: CHLORHEXIDINE GLUCONATE 15 ML MOUTHWASH MM SCH ×2 (08:45→21:00)
[2017-04-04 08:46] VITALS: BP 114/72
[2017-04-04] MEDS: FOLIC ACID/VITAMIN B COMP W-C TABLET PO SCH (08:46)
[2017-04-04] MEDS: LISINOPRIL 10 MG TABLET PO SCH (08:46)
[2017-04-04] MEDS: FERROUS SULFATE 325 MG TABEC PO SCH ×3 (08:47→17:26)
[2017-04-04] MEDS: POTASSIUM CHLORIDE 20 MEQ TAB.PRT.SR PO SCH (08:47)
[2017-04-04] MEDS: LEVETIRACETAM 500 MG TABLET PO SCH ×2 (08:47→21:02)
[2017-04-04] MEDS: FOLIC ACID 1 MG TABLET PO SCH (08:47)
[2017-04-04] MEDS: AMIODARONE HCL 200 MG TABLET PO SCH ×2 (08:47→21:01)
[2017-04-04] MEDS: METOPROLOL TARTRATE 100 MG TABLET PO SCH ×2 (08:47→21:02)
[2017-04-04] MEDS: AMLODIPINE 10 MG TABLET PO SCH (08:48)
[2017-04-04] MEDS: POLYVINYL ALCOHOL OPHT DROPS 15 ML BOTTLE OP SCH ×2 (08:49→17:25)
[2017-04-04] MEDS: NITROGLYCERIN 0.3 MG/HR TD SCH (08:51)
[2017-04-04] MEDS: Z GUARD REMEDY PASTE 57 GM TUBE TOP SCH ×2 (08:53→21:03)
[2017-04-04] MEDS: NYSTATIN OINTMENT 15 GM TUBE TOP SCH ×2 (08:53→21:04)
--- NOTE | 2017-04-04 09:19 | NUR ---
DR. Morrell in the unit and orders to stop heparin drip at this time. and to keep patient NPO for lunch. Also to hold heparin x6 hours post procedure patient will be going for G-tube removal at 1500 today. heparin to be resumed 6 hours post procedure.
--- NOTE | 2017-04-04 15:55 | NUR ---
DR. Pineda in to remove G-tube. After removal pressure dressing applied for 15 minutes. Minimal bleeding noted at this time. Family at bedside.
--- NOTE | 2017-04-04 16:21 | NUR ---
A PTT for 2200 ordered per protocol and after consulting with pharmacist. Incoming shift will be endorse orders received to resume Heparin drip.
[2017-04-04 21:45] VITALS: BP 118/68
[2017-04-04] MEDS ORDERED: WARFARIN SODIUM 10 MG TABLET PO ONE (22:00)
--- NOTE | 2017-04-04 22:47 | NUR ---
Received patient PTT results of 29.6. Called Dr. Luigi lentz for orders. No answer. Will call back again. Patient in no acute distress at this time. Addendum: 04/04/17 at 2301 by KEVIN PICKERING RN [id number]: Called Dr. Luigi lentz again and spoke with Mike. Dr. Cortez occupational medicine physician and he will page Awaiting call back.
--- NOTE | 2017-04-04 23:30 | NUR ---
Received call back from medication coordinator Dr. Li Cortez. Made aware of current PTT results of 29.6 and previous PTT 53.9. Dr. Cortez made aware that patient was on Heparin drip previously and was stopped due to removal of G-tube. Per Dr. Morrell orders, may resume Heparin drip [address] Cortez made aware. Per Dr. Cortez no bolus and to resume Heparin drip per protocol. Clarified orders with Dr. Cortez and Guitar Player Joaquina. New orders noted and carried out.
[2017-04-05] MEDS ORDERED: HEPARIN/D5W DRIP 500 ML ONE (00:26)
[2017-04-05] MEDS: hydrALAZINE HCL 50 MG TABLET PO SCH ×4 (00:32→17:11)
[2017-04-05] MEDS: BLOOD SUGAR DIAGNOSTIC 1 EACH STRIP VI SCH ×5 (00:32→21:04)
[2017-04-05] MEDS: PIPERACILLIN/TAZOBACTAM/D5W 2.25 G in PREMIXED 1 EACH IV SCH (00:33)
[2017-04-05] MEDS: HEPARIN/D5W DRIP 500 ML IV PRN ×2 (00:37→21:00)
--- NOTE | 2017-04-05 00:37 | NUR ---
Heparin drip started per protocol. Verified with Sheet Roller Operator and 2nd nurse. Patient is alert, oriented. Verbally responsive. Able to make needs known. On room air. No c/o pain and discomfort. No acute distress. No SOB. Midline dressing intact. Kept clean and dry. No s/s of bleeding at this time. Patient resting comfortably in bed. All needs attended to promptly. Call light within reach. Will continue to monitor. Will re-check PTT in 6 hours.
[2017-04-05] MEDS: IPRATROPIUM BROMIDE 0.5 MG/2.5 ML NEBU IH SCH ×4 (01:30→20:05)
--- NOTE | 2017-04-05 02:09 | NUR ---
Pt refused HHN tx . CRISTINE Samuels aware.
[2017-04-05] MEDS: CLONIDINE HCL 0.2 MG TABLET PO SCH ×2 (06:31→13:49)
--- NOTE | 2017-04-05 06:40 | NUR ---
Patient alert and oriented, verbally able to let needs known. Heparin continues to run, no signs of bleeding noted. Patient had no complains of pain or discomfort, no signs of respiratory distress. Maintained clean and dry throughout the night, all needs attended to.
[2017-04-05] MEDS: PANTOPRAZOLE SODIUM 40 MG TABLET.DR PO SCH ×2 (07:00→16:33)
[2017-04-05 08:19] LABS: BASOPHILS # (AUTO) 0.1 K/uL (0.0-8.0); BASOPHILS % (AUTO) 0.6 % (0.0-2.0); EOSINOPHILS # (AUTO) 0.3 K/uL (0.0-0.7); EOSINOPHILS % (AUTO) 2.7 % (0.0-7.0); HEMATOCRIT 30.9 % (40-50); HEMOGLOBIN 10.7 G/DL (14.0-18.0); LYMPHOCYTES # (AUTO) 2.2 K/UL (0.8-4.8); MEAN CORPUSCULAR HEMOGLOBIN 33.2 UUG (27.0-31.0); MEAN CORPUSCULAR HGB CONC 35 g/dL (32.0-37.0); MEAN CORPUSCULAR VOLUME 95.9 FL (82.0-92.0); MONOCYTES # (AUTO) 0.8 K/UL (0.1-1.30); MONOCYTES % (AUTO) 8.5 % (0.0-11.0); NEUTROPHILS # (AUTO) 6.5 K/UL (1.8-8.9); NEUTROPHILS % (AUTO) 66.2 % (38.5-71.5); PLATELET COUNT (AUTO) 269 K/UL (150-450); RED BLOOD CELL COUNT(AUTO) 3.23 MIL/UL (4.7-6.1)
[2017-04-05 08:26] LABS: BILIRUBIN,TOTAL 0.3 mg/dL (0.2-1.0); CREATININE 2.8 mg/dL (0.6-1.3); MAGNESIUM 1.5 mg/dL (1.8-2.4); PHOSPHOROUS 4.6 mg/dL (2.5-4.9); POTASSIUM 3.4 mmol/L (3.5-5.1); TOTAL PROTEIN, SERUM 8.5 g/dL (6.4-8.2)
[2017-04-05 08:28] LABS: WHITE BLOOD COUNT (AUTO) 9.9 K/UL (4.0-11.2)
--- NOTE | 2017-04-05 08:28 | NUR ---
ptt 52.6 at 0830. no changes on rate.
[2017-04-05] MEDS ORDERED: EPOETIN ALFA 10,000 UNITS/ML VIAL SQ SCH (09:00)
[2017-04-05] MEDS: LISINOPRIL 10 MG TABLET PO SCH (09:00)
[2017-04-05] MEDS: AMIODARONE HCL 200 MG TABLET PO SCH (09:00)
[2017-04-05] MEDS: AMLODIPINE 10 MG TABLET PO SCH (09:00)
[2017-04-05] MEDS: FERROUS SULFATE 325 MG TABEC PO SCH ×3 (09:19→16:33)
[2017-04-05] MEDS: FOLIC ACID/VITAMIN B COMP W-C TABLET PO SCH (09:19)
[2017-04-05] MEDS: POTASSIUM CHLORIDE 20 MEQ TAB.PRT.SR PO SCH (09:19)
[2017-04-05] MEDS: FOLIC ACID 1 MG TABLET PO SCH (09:19)
[2017-04-05] MEDS: LEVETIRACETAM 500 MG TABLET PO SCH ×2 (09:19→21:07)
[2017-04-05] MEDS: TETRAHYDROZOLINE 0.05% OPHT DR 15 ML BOTTLE EACHEYE PRN ×2 (09:20→16:33)
[2017-04-05] MEDS: CHLORHEXIDINE GLUCONATE 15 ML MOUTHWASH MM SCH ×2 (09:20→21:06)
[2017-04-05] MEDS: POLYVINYL ALCOHOL OPHT DROPS 15 ML BOTTLE OP SCH ×2 (09:22→16:33)
[2017-04-05] MEDS: NAPHAZOLINE/PHENIR OPHT DROP 15 ML BOTTLE EACHEYE SCH ×2 (09:22→16:33)
[2017-04-05] MEDS: METOPROLOL TARTRATE 100 MG TABLET PO SCH ×2 (09:23→21:08)
[2017-04-05] MEDS: NITROGLYCERIN 0.3 MG/HR TD SCH (09:24)
[2017-04-05] MEDS: NYSTATIN OINTMENT 15 GM TUBE TOP SCH ×2 (09:30→21:05)
[2017-04-05] MEDS: Z GUARD REMEDY PASTE 57 GM TUBE TOP SCH ×2 (09:31→21:04)
[2017-04-05] MEDS: FUROSEMIDE 80 MG TABLET PO SCH (09:47)
[2017-04-05] MEDS ORDERED: DEXTROSE 50% 50 ML DISP.SYRIN IV PRN (11:15)
[2017-04-05 11:20] VITALS: BP 108/66
[2017-04-05] MEDS ORDERED: INSULIN REGULAR, HUMAN 300 UNIT/3 ML VIAL SQ PRN (11:30)
[2017-04-05] MEDS: INSULIN REGULAR, HUMAN 300 UNIT/3 ML VIAL SQ PRN ×2 (16:35→21:11)
[2017-04-06 01:12] VITALS: BP 131/72
[2017-04-06] MEDS: IPRATROPIUM BROMIDE 0.5 MG/2.5 ML NEBU IH SCH ×4 (01:30→19:11)
--- NOTE | 2017-04-06 01:51 | NUR ---
Pt aslep. No sob noted. HHN tx not given. RN Abril aware.
[2017-04-06] MEDS: PANTOPRAZOLE SODIUM 40 MG TABLET.DR PO SCH ×2 (06:38→17:30)
[2017-04-06] MEDS: BLOOD SUGAR DIAGNOSTIC 1 EACH STRIP VI SCH ×4 (06:39→20:59)
--- NOTE | 2017-04-06 06:43 | NUR ---
Patient slept well throughout the night, had no complains of pain or discomfort, no signs of respiratory distress. Heparin running at 29ml/hr on midline on L arm. No signs of bleeding noted. Maintained clean and dry, call light within reach, all needs attended.
[2017-04-06 07:57] VITALS: BP 153/89
[2017-04-06] MEDS ORDERED: FUROSEMIDE 80 MG TABLET PO SCH (09:00)
[2017-04-06] MEDS: NAPHAZOLINE/PHENIR OPHT DROP 15 ML BOTTLE EACHEYE SCH ×2 (09:33→17:31)
[2017-04-06] MEDS: POLYVINYL ALCOHOL OPHT DROPS 15 ML BOTTLE OP SCH ×2 (09:34→17:30)
[2017-04-06] MEDS: METOPROLOL TARTRATE 100 MG TABLET PO SCH ×2 (09:34→20:55)
[2017-04-06] MEDS: LEVETIRACETAM 500 MG TABLET PO SCH ×2 (09:35→20:54)
[2017-04-06] MEDS: FERROUS SULFATE 325 MG TABEC PO SCH ×3 (09:35→17:30)
[2017-04-06] MEDS: FOLIC ACID/VITAMIN B COMP W-C TABLET PO SCH (09:35)
[2017-04-06] MEDS: FOLIC ACID 1 MG TABLET PO SCH (09:35)
[2017-04-06] MEDS: POTASSIUM CHLORIDE 20 MEQ TAB.PRT.SR PO SCH (09:35)
[2017-04-06] MEDS: FUROSEMIDE 40 MG TABLET PO SCH (09:35)
[2017-04-06] MEDS: NYSTATIN OINTMENT 15 GM TUBE TOP SCH ×2 (09:37→20:57)
[2017-04-06] MEDS: NITROGLYCERIN 0.3 MG/HR TD SCH (09:43)
[2017-04-06] MEDS: CHLORHEXIDINE GLUCONATE 15 ML MOUTHWASH MM SCH ×2 (09:44→20:54)
[2017-04-06] MEDS: Z GUARD REMEDY PASTE 57 GM TUBE TOP PRN ×2 (09:44→09:46)
[2017-04-06] MEDS: Z GUARD REMEDY PASTE 57 GM TUBE TOP SCH ×2 (09:50→20:56)
--- NOTE | 2017-04-06 10:30 | NUR ---
PTT 62.0 at this time. Pharmacy called and stated no change in Heparin dose. Pharmacy ordered PTT for AM.
[2017-04-06] MEDS: INSULIN REGULAR, HUMAN 300 UNIT/3 ML VIAL SQ PRN ×2 (12:02→21:03)
[2017-04-06] MEDS: HEPARIN/D5W DRIP 500 ML IV PRN (15:21)
[2017-04-06] MEDS ORDERED: hydrALAZINE HCL 50 MG TABLET PO PRN (18:00)
--- NOTE | 2017-04-06 18:32 | NUR ---
Patient resting comfortably. was here most of all day. Patient remains on Heparin drip at 29ml/hr.to IVÁN midline. Patient has double lumen central line in place. PTT schedule for AM. No signs of bleeding, no resp distress noted, denies pain/discomfort at this time.
[2017-04-06 21:18] VITALS: BP 156/89
[2017-04-07] MEDS: IPRATROPIUM BROMIDE 0.5 MG/2.5 ML NEBU IH SCH ×4 (00:40→19:21)
[2017-04-07] MEDS: BLOOD SUGAR DIAGNOSTIC 1 EACH STRIP VI SCH ×4 (06:37→20:40)
--- NOTE | 2017-04-07 06:37 | NUR ---
Patient slept intermittently throughout the night, showed no signs of pain or discomfort, no signs of respiratory distress. Continues on heparin drip at 29ml/hr. No signs of bleeding noted. Mid line patent. Maintained clean and dry, reinforced the use of the call light.
--- NOTE | 2017-04-07 07:20 | NUR ---
RECEIVED REPORT FROM PILOT SUBMERSIBLE NURSE, PATIENT IN BED, BED IN LOW POSITION, SIDE RAILS UP X2
[2017-04-07 08:30] VITALS: BP 159/97
[2017-04-07] MEDS: FERROUS SULFATE 325 MG TABEC PO SCH ×3 (08:40→17:51)
[2017-04-07] MEDS: FOLIC ACID/VITAMIN B COMP W-C TABLET PO SCH (08:40)
[2017-04-07] MEDS: PANTOPRAZOLE SODIUM 40 MG TABLET.DR PO SCH ×2 (08:40→17:51)
[2017-04-07] MEDS: NITROGLYCERIN 0.3 MG/HR TD SCH (08:41)
[2017-04-07] MEDS: LEVETIRACETAM 500 MG TABLET PO SCH ×2 (08:41→20:40)
[2017-04-07] MEDS: FOLIC ACID 1 MG TABLET PO SCH (08:41)
[2017-04-07] MEDS: METOPROLOL TARTRATE 100 MG TABLET PO SCH ×2 (08:41→20:41)
[2017-04-07] MEDS: POTASSIUM CHLORIDE 20 MEQ TAB.PRT.SR PO SCH (08:41)
[2017-04-07] MEDS: FUROSEMIDE 40 MG TABLET PO SCH (08:41)
[2017-04-07] MEDS: CHLORHEXIDINE GLUCONATE 15 ML MOUTHWASH MM SCH ×2 (08:42→20:46)
[2017-04-07] MEDS: NYSTATIN OINTMENT 15 GM TUBE TOP SCH ×2 (08:42→20:47)
[2017-04-07] MEDS: Z GUARD REMEDY PASTE 57 GM TUBE TOP SCH ×2 (08:42→20:52)
[2017-04-07] MEDS: POLYVINYL ALCOHOL OPHT DROPS 15 ML BOTTLE OP SCH ×2 (08:43→17:53)
[2017-04-07] MEDS: NAPHAZOLINE/PHENIR OPHT DROP 15 ML BOTTLE EACHEYE SCH ×2 (08:44→17:53)
[2017-04-07 10:09] LABS: BASOPHILS # (AUTO) 0.1 K/uL (0.0-8.0); BASOPHILS % (AUTO) 0.6 % (0.0-2.0); EOSINOPHILS # (AUTO) 0.2 K/uL (0.0-0.7); EOSINOPHILS % (AUTO) 2.6 % (0.0-7.0); LYMPHOCYTES # (AUTO) 1.7 K/UL (0.8-4.8); LYMPHOCYTES % (AUTO) 19.9 % (20.5-51.5); MEAN CORPUSCULAR HEMOGLOBIN 29.4 UUG (27.0-31.0); MEAN CORPUSCULAR HGB CONC 32 g/dL (32.0-37.0); MEAN CORPUSCULAR VOLUME 93.4 FL (82.0-92.0); MONOCYTES # (AUTO) 0.6 K/UL (0.1-1.30); MONOCYTES % (AUTO) 6.6 % (0.0-11.0); NEUTROPHILS % (AUTO) 70.3 % (38.5-71.5); PLATELET COUNT (AUTO) 212 K/UL (150-450); WHITE BLOOD COUNT (AUTO) 8.6 K/UL (4.0-11.2)
[2017-04-07 10:12] LABS: HEMATOCRIT 37.3 % (40-50); RED BLOOD CELL COUNT(AUTO) 3.97 MIL/UL (4.7-6.1)
[2017-04-07 10:27] LABS: CREATININE 2.3 mg/dL (0.6-1.3); MAGNESIUM 1.5 mg/dL (1.8-2.4); PHOSPHOROUS 3.6 mg/dL (2.5-4.9); POTASSIUM 3.6 mmol/L (3.5-5.1)
[2017-04-07 11:03] LABS: IRON, SERUM 63 ug/dL (50-175)
[2017-04-07] MEDS: HEPARIN/D5W DRIP 500 ML IV PRN ×2 (14:29→21:26)
--- NOTE | 2017-04-07 18:23 | NUR ---
Patient alert and oriented, verbally able to let needs known. Heparin continues to run, no signs of bleeding noted. Patient had no complains of pain or discomfort, no signs of respiratory distress. Contacted Dr Graff for Coumadin order as he hasn't taken it for the last two days, will place orders as appropriate later in the night.
[2017-04-07] MEDS ORDERED: WARFARIN SODIUM 10 MG TABLET PO SCH (19:00)
[2017-04-07 20:29] VITALS: BP 164/105
[2017-04-07] MEDS: INSULIN REGULAR, HUMAN 300 UNIT/3 ML VIAL SQ PRN (20:54)
[2017-04-07] MEDS ORDERED: HEPARIN/D5W DRIP 500 ML ONE (21:31)
[2017-04-07] MEDS: hydrALAZINE HCL 25 MG TABLET PO PRN (23:20)
--- NOTE | 2017-04-07 23:22 | NUR ---
Patient's b/p was checked since it was elevated during the beginning of shift. B/P reading was 152/88, PRN apresoline was given as ordered. Will continue to monitor and recheck B/P
[2017-04-07 23:23] VITALS: BP 152/88
--- NOTE | 2017-04-08 00:30 | NUR ---
Patients blood pressure rechecked with improved results reading 136/74, HR 60.
[2017-04-08] MEDS: IPRATROPIUM BROMIDE 0.5 MG/2.5 ML NEBU IH SCH ×4 (01:06→19:19)
[2017-04-08] MEDS: BLOOD SUGAR DIAGNOSTIC 1 EACH STRIP VI SCH ×4 (06:15→20:57)
[2017-04-08] MEDS: PANTOPRAZOLE SODIUM 40 MG TABLET.DR PO SCH ×2 (06:15→17:08)
--- NOTE | 2017-04-08 06:17 | NUR ---
Patient slept intermittently throughout the night, continues to try to get out of bed without assistance. Reinforced teaching land commissioner light use. Denies any pain or discomfort at this time. No signs of respiratory distress. Continues on heparin drip, with no signs of bleeding noted. Call light within reach.
[2017-04-08 07:22] LABS: BASOPHILS # (AUTO) 0.1 K/uL (0.0-8.0); BASOPHILS % (AUTO) 0.8 % (0.0-2.0); EOSINOPHILS # (AUTO) 0.2 K/uL (0.0-0.7); EOSINOPHILS % (AUTO) 2.6 % (0.0-7.0); HEMATOCRIT 36.3 % (40-50); HEMOGLOBIN 11.9 G/DL (14.0-18.0); LYMPHOCYTES # (AUTO) 2.2 K/UL (0.8-4.8); LYMPHOCYTES % (AUTO) 25.8 % (20.5-51.5); MEAN CORPUSCULAR HGB CONC 33 g/dL (32.0-37.0); MEAN CORPUSCULAR VOLUME 94.6 FL (82.0-92.0); MONOCYTES # (AUTO) 0.8 K/UL (0.1-1.30); MONOCYTES % (AUTO) 9.7 % (0.0-11.0); NEUTROPHILS # (AUTO) 5.2 K/UL (1.8-8.9); NEUTROPHILS % (AUTO) 61.1 % (38.5-71.5); PLATELET COUNT (AUTO) 238 K/UL (150-450); RED BLOOD CELL COUNT(AUTO) 3.83 MIL/UL (4.7-6.1); WHITE BLOOD COUNT (AUTO) 8.5 K/UL (4.0-11.2)
[2017-04-08 07:35] LABS: CREATININE 2.2 mg/dL (0.6-1.3); MAGNESIUM 1.5 mg/dL (1.8-2.4); POTASSIUM 3.8 mmol/L (3.5-5.1)
[2017-04-08 08:00] VITALS: BP 155/104
[2017-04-08] MEDS: FOLIC ACID 1 MG TABLET PO SCH (08:30)
[2017-04-08] MEDS: POTASSIUM CHLORIDE 20 MEQ TAB.PRT.SR PO SCH (08:30)
[2017-04-08] MEDS: FERROUS SULFATE 325 MG TABEC PO SCH ×3 (08:31→17:08)
[2017-04-08] MEDS: LEVETIRACETAM 500 MG TABLET PO SCH ×2 (08:31→20:50)
[2017-04-08] MEDS: FUROSEMIDE 40 MG TABLET PO SCH (08:31)
[2017-04-08] MEDS: NYSTATIN OINTMENT 15 GM TUBE TOP SCH ×2 (08:31→20:49)
[2017-04-08] MEDS: FOLIC ACID/VITAMIN B COMP W-C TABLET PO SCH (08:31)
[2017-04-08] MEDS: METOPROLOL TARTRATE 100 MG TABLET PO SCH ×2 (08:31→21:03)
[2017-04-08] MEDS: NITROGLYCERIN 0.3 MG/HR TD SCH (08:31)
[2017-04-08] MEDS: Z GUARD REMEDY PASTE 57 GM TUBE TOP SCH ×2 (08:32→20:49)
[2017-04-08] MEDS: NAPHAZOLINE/PHENIR OPHT DROP 15 ML BOTTLE EACHEYE SCH ×2 (08:32→17:08)
[2017-04-08] MEDS: CHLORHEXIDINE GLUCONATE 15 ML MOUTHWASH MM SCH ×2 (08:32→20:49)
[2017-04-08] MEDS: POLYVINYL ALCOHOL OPHT DROPS 15 ML BOTTLE OP SCH ×2 (08:32→17:08)
[2017-04-08] MEDS: HEPARIN/D5W DRIP 500 ML IV PRN (13:30)
[2017-04-08] MEDS ORDERED: MAGNESIUM OXIDE 400 MG TABLET PO ONE (15:30)
[2017-04-08] MEDS ORDERED: WARFARIN SODIUM 10 MG TABLET PO SCH (17:00)
[2017-04-08] MEDS: WARFARIN SODIUM 2 MG TABLET PO SCH (17:10)
[2017-04-08 20:00] VITALS: BP 149/91
[2017-04-09] MEDS: IPRATROPIUM BROMIDE 0.5 MG/2.5 ML NEBU IH SCH ×4 (01:20→20:03)
--- NOTE | 2017-04-09 05:24 | NUR ---
CONTINUE ON HEPARIN DRIP, NO SIGNS OF ANY ACTIVE BLEEDING AT THIS TIME. PICC LINE DRESSING CHANGED ON LEFT UPPER ARM USING ASEPTIC TECHNIQUE. PROCEDURE TOLERATED WELL. DENIES PAIN. ON BRP WITH ASSISTANCE. SAFETY MAINTAINED. CALL LIGHT WITHIN REACH.
[2017-04-09] MEDS: PANTOPRAZOLE SODIUM 40 MG TABLET.DR PO SCH ×2 (06:16→16:58)
[2017-04-09] MEDS: BLOOD SUGAR DIAGNOSTIC 1 EACH STRIP VI SCH ×4 (06:16→20:50)
--- NOTE | 2017-04-09 06:39 | NUR ---
BS CHECKED, 104 IN AM, NO COVERAGE PER SLIDING SCALE.
[2017-04-09] MEDS: HEPARIN/D5W DRIP 500 ML IV PRN (07:14)
[2017-04-09 08:00] VITALS: BP 158/107
[2017-04-09] MEDS: NAPHAZOLINE/PHENIR OPHT DROP 15 ML BOTTLE EACHEYE SCH ×2 (08:40→17:06)
[2017-04-09] MEDS: CHLORHEXIDINE GLUCONATE 15 ML MOUTHWASH MM SCH ×2 (08:40→20:45)
[2017-04-09] MEDS: FUROSEMIDE 40 MG TABLET PO SCH (08:41)
[2017-04-09] MEDS: FERROUS SULFATE 325 MG TABEC PO SCH ×3 (08:41→16:58)
[2017-04-09] MEDS: METOPROLOL TARTRATE 100 MG TABLET PO SCH ×2 (08:41→20:44)
[2017-04-09] MEDS: POTASSIUM CHLORIDE 20 MEQ TAB.PRT.SR PO SCH (08:41)
[2017-04-09] MEDS: FOLIC ACID/VITAMIN B COMP W-C TABLET PO SCH (08:41)
[2017-04-09] MEDS: FOLIC ACID 1 MG TABLET PO SCH (08:41)
[2017-04-09] MEDS: LEVETIRACETAM 500 MG TABLET PO SCH ×2 (08:41→20:44)
[2017-04-09] MEDS: POLYVINYL ALCOHOL OPHT DROPS 15 ML BOTTLE OP SCH ×2 (08:41→17:06)
[2017-04-09] MEDS: NYSTATIN OINTMENT 15 GM TUBE TOP SCH ×2 (08:42→20:46)
[2017-04-09] MEDS: NITROGLYCERIN 0.3 MG/HR TD SCH (08:42)
[2017-04-09] MEDS: Z GUARD REMEDY PASTE 57 GM TUBE TOP PRN (08:43)
[2017-04-09] MEDS: Z GUARD REMEDY PASTE 57 GM TUBE TOP SCH ×2 (08:43→20:46)
--- NOTE | 2017-04-09 10:00 | NUR ---
Stopped Heparin drip as per MD's orders, in preparation for portacath removal scheduled at 12 noon.
--- NOTE | 2017-04-09 12:00 | NUR ---
Dr. Carson here to remove portacath form right upper chest. Patient tolerated procedure well, no active bleeding noted, applie pressure dressing over P.W., taped in place. Will continue to monitor.
[2017-04-09 14:06] LABS: VIT D, 25-HYDROXY 15.7 ng/mL (30.0-100.0)
[2017-04-09 14:06] LABS: VIT D, 25-HYDROXY 15.3 ng/mL (30.0-100.0)
[2017-04-09] MEDS: WARFARIN SODIUM 2 MG TABLET PO SCH (17:03)
--- NOTE | 2017-04-09 18:01 | NUR ---
Sitting in chair, family at bedside. Denies any pain/discomfort at this time. No resp distress noted. Asked to explain to patient how to use call light for assistance.
[2017-04-09 22:23] VITALS: BP 156/105
[2017-04-10] MEDS: IPRATROPIUM BROMIDE 0.5 MG/2.5 ML NEBU IH SCH ×4 (01:06→19:26)
[2017-04-10] MEDS: HEPARIN/D5W DRIP 500 ML IV PRN (04:33)
[2017-04-10] MEDS: PANTOPRAZOLE SODIUM 40 MG TABLET.DR PO SCH ×2 (06:56→17:55)
[2017-04-10] MEDS: BLOOD SUGAR DIAGNOSTIC 1 EACH STRIP VI SCH ×4 (07:41→22:23)
[2017-04-10 08:23] VITALS: BP 150/110
[2017-04-10 09:55] VITALS: BP 132/86
[2017-04-10] MEDS: LEVETIRACETAM 500 MG TABLET PO SCH ×2 (10:01→22:26)
[2017-04-10] MEDS: FOLIC ACID 1 MG TABLET PO SCH (10:01)
[2017-04-10] MEDS: FERROUS SULFATE 325 MG TABEC PO SCH ×3 (10:01→17:55)
[2017-04-10] MEDS: POTASSIUM CHLORIDE 20 MEQ TAB.PRT.SR PO SCH (10:01)
[2017-04-10] MEDS: FUROSEMIDE 40 MG TABLET PO SCH (10:01)
[2017-04-10] MEDS: FOLIC ACID/VITAMIN B COMP W-C TABLET PO SCH (10:01)
[2017-04-10] MEDS: METOPROLOL TARTRATE 100 MG TABLET PO SCH ×2 (10:02→22:26)
[2017-04-10] MEDS: POLYVINYL ALCOHOL OPHT DROPS 15 ML BOTTLE OP SCH ×2 (10:03→17:56)
[2017-04-10] MEDS: CHLORHEXIDINE GLUCONATE 15 ML MOUTHWASH MM SCH ×2 (10:03→10:08)
[2017-04-10] MEDS: NAPHAZOLINE/PHENIR OPHT DROP 15 ML BOTTLE EACHEYE SCH ×2 (10:04→17:55)
[2017-04-10] MEDS: NITROGLYCERIN 0.3 MG/HR TD SCH (10:07)
[2017-04-10] MEDS: Z GUARD REMEDY PASTE 57 GM TUBE TOP SCH ×2 (10:08→21:00)
[2017-04-10] MEDS: NYSTATIN OINTMENT 15 GM TUBE TOP SCH ×2 (10:10→21:00)
[2017-04-10 12:10] LABS: CALCITRIOL VIT D,1,25 DIHYDROX 30.5 pg/mL (19.9-79.3)
[2017-04-10 12:10] LABS: CALCITRIOL VIT D,1,25 DIHYDROX 26.8 pg/mL (19.9-79.3)
[2017-04-10 12:19] VITALS: BP 146/99
--- NOTE | 2017-04-10 14:51 | NUR ---
REHAB TEAM CONFERENCE MEETING 04/10/17
[2017-04-10] MEDS ORDERED: WARFARIN SODIUM 2 MG TABLET PO SCH (17:00)
[2017-04-10] MEDS ORDERED: WARFARIN SODIUM 4 MG TABLET PO SCH (17:00)
[2017-04-10] MEDS: TETRAHYDROZOLINE 0.05% OPHT DR 15 ML BOTTLE EACHEYE PRN (17:56)
--- NOTE | 2017-04-10 18:31 | NUR ---
PT. ACTIVE WITH CARE PLAN. OOB TO CHAIR AND BR. AMBULATING IN HALLWAY WITH STAFF AND FAMILY. HEPARIN DRIP RATE UNCHANGED AT 1450 UNITS PER HOUR (29ML/HR). PT. C/O ECHO EFFECT IN EARS AND BLURRY VISION AND DR. THOMPSON SPOKE TO PT. AND FAMILY REGARDING ISSUES. PT. VOIDING WELL AND HAS FAIR TO GOOD APPETITE. FAMILY AT BS MOST OF SHIFT.
--- NOTE | 2017-04-10 20:00 | NUR ---
PT IN NAD; VSS. PT CONTINUES ON HEPARIN GTT FOR NON-ACS VIA WILLY MIDLINE. PT DENIES PAIN OR DISCOMFORT AT THIS TIME.
[2017-04-10 20:17] VITALS: BP 149/93
[2017-04-11] MEDS: HEPARIN/D5W DRIP 500 ML IV PRN ×2 (00:03→20:03)
[2017-04-11] MEDS: IPRATROPIUM BROMIDE 0.5 MG/2.5 ML NEBU IH SCH ×4 (00:45→19:48)
--- NOTE | 2017-04-11 05:13 | NUR ---
PT RESTING QUIETLY; NAD NOTED
[2017-04-11] MEDS: PANTOPRAZOLE SODIUM 40 MG TABLET.DR PO SCH ×2 (07:27→17:39)
[2017-04-11 08:07] VITALS: BP 168/109
[2017-04-11] MEDS: POTASSIUM CHLORIDE 20 MEQ TAB.PRT.SR PO SCH (08:48)
[2017-04-11] MEDS: FUROSEMIDE 40 MG TABLET PO SCH (08:48)
[2017-04-11] MEDS: LEVETIRACETAM 500 MG TABLET PO SCH ×2 (08:48→21:44)
[2017-04-11] MEDS: FOLIC ACID/VITAMIN B COMP W-C TABLET PO SCH (08:48)
[2017-04-11] MEDS: FERROUS SULFATE 325 MG TABEC PO SCH ×3 (08:48→17:39)
[2017-04-11] MEDS: BLOOD SUGAR DIAGNOSTIC 1 EACH STRIP VI SCH ×4 (08:48→21:51)
[2017-04-11] MEDS: METOPROLOL TARTRATE 100 MG TABLET PO SCH ×2 (08:48→21:45)
[2017-04-11] MEDS: FOLIC ACID 1 MG TABLET PO SCH (08:49)
[2017-04-11] MEDS: CHLORHEXIDINE GLUCONATE 15 ML MOUTHWASH MM SCH ×2 (08:49→21:00)
[2017-04-11] MEDS: POLYVINYL ALCOHOL OPHT DROPS 15 ML BOTTLE OP SCH ×2 (08:50→17:44)
[2017-04-11] MEDS: NAPHAZOLINE/PHENIR OPHT DROP 15 ML BOTTLE EACHEYE SCH ×2 (08:50→17:43)
[2017-04-11] MEDS: NITROGLYCERIN 0.3 MG/HR TD SCH (08:51)
[2017-04-11] MEDS: NYSTATIN OINTMENT 15 GM TUBE TOP SCH (09:00)
[2017-04-11] MEDS: Z GUARD REMEDY PASTE 57 GM TUBE TOP SCH ×2 (09:01→21:00)
[2017-04-11] MEDS: hydrALAZINE HCL 25 MG TABLET PO PRN (11:49)
--- NOTE | 2017-04-11 11:50 | NUR ---
pt have a bp 155/100 hr 73. pt asymptomatic. pt given 25 mg apresoline @1146. will continue to reassess pt.
[2017-04-11] MEDS ORDERED: WARFARIN SODIUM 4 MG TABLET PO SCH ×2 (17:00)
[2017-04-11] MEDS: TETRAHYDROZOLINE 0.05% OPHT DR 15 ML BOTTLE EACHEYE PRN (17:44)
--- NOTE | 2017-04-11 18:30 | NUR ---
pt adhered to therapy with tolerable level of pain and had no signs of acute distress. pt had adls such as grooming and a shower with assistance. pt had improvement in intake of food. pt was helped to the bathroom to void and bm. pt was visited by family and had ensure to be given to pt. pt had no changes in loc and had improvements in endurance in exercise. pt had maintained therapeutic levels of heparin and ordered to have labs drawn tomorrow for ptt. pt is stable. provided comfort measures. will continue to endorse new orders to night order selector nurse.
[2017-04-11 20:00] VITALS: BP 128/80
[2017-04-12] MEDS: IPRATROPIUM BROMIDE 0.5 MG/2.5 ML NEBU IH SCH ×4 (02:02→19:14)
--- NOTE | 2017-04-12 06:22 | NUR ---
PT SLEPT THROUGH MOST OF THE NIGHT; NO COMPLAINTS OF PAIN; VSS; NAD NOTED THROUGHOUT SHIFT
[2017-04-12] MEDS: PANTOPRAZOLE SODIUM 40 MG TABLET.DR PO SCH ×2 (07:29→17:08)
[2017-04-12] MEDS: BLOOD SUGAR DIAGNOSTIC 1 EACH STRIP VI SCH ×4 (08:28→20:42)
[2017-04-12] MEDS: POLYVINYL ALCOHOL OPHT DROPS 15 ML BOTTLE OP SCH ×2 (08:29→17:07)
[2017-04-12] MEDS: FOLIC ACID 1 MG TABLET PO SCH (08:29)
[2017-04-12] MEDS: NAPHAZOLINE/PHENIR OPHT DROP 15 ML BOTTLE EACHEYE SCH ×2 (08:29→17:06)
[2017-04-12] MEDS: LEVETIRACETAM 500 MG TABLET PO SCH ×2 (08:30→20:32)
[2017-04-12] MEDS: FOLIC ACID/VITAMIN B COMP W-C TABLET PO SCH (08:30)
[2017-04-12] MEDS: CHLORHEXIDINE GLUCONATE 15 ML MOUTHWASH MM SCH ×2 (08:30→20:32)
[2017-04-12] MEDS: FUROSEMIDE 40 MG TABLET PO SCH (08:30)
[2017-04-12] MEDS: POTASSIUM CHLORIDE 20 MEQ TAB.PRT.SR PO SCH (08:30)
[2017-04-12] MEDS: FERROUS SULFATE 325 MG TABEC PO SCH ×3 (08:30→17:08)
[2017-04-12] MEDS: METOPROLOL TARTRATE 100 MG TABLET PO SCH ×2 (08:30→20:32)
[2017-04-12] MEDS: Z GUARD REMEDY PASTE 57 GM TUBE TOP SCH ×2 (08:31→20:32)
[2017-04-12] MEDS: NITROGLYCERIN 0.3 MG/HR TD SCH (08:31)
[2017-04-12 08:32] VITALS: BP 152/104
[2017-04-12] MEDS: HEPARIN/D5W DRIP 500 ML IV PRN (12:16)
--- NOTE | 2017-04-12 14:13 | NUR ---
WALKING WITH PT
[2017-04-12] MEDS: WARFARIN SODIUM 4 MG TABLET PO SCH (17:08)
[2017-04-12 20:53] VITALS: BP 143/96
[2017-04-13] MEDS: IPRATROPIUM BROMIDE 0.5 MG/2.5 ML NEBU IH SCH ×4 (00:44→18:22)
[2017-04-13] MEDS: HEPARIN/D5W DRIP 500 ML IV PRN (05:12)
--- NOTE | 2017-04-13 06:14 | NUR ---
PT SLEEPING MOST OF THE TIME, DENIES ANY PAIN OR DISCOMFORT,USES FWW TO WALK TO BATHROOM HAD X2 BM OVERNIGHT,URINAL FOR VOIDING.VSS,AFEBRILE ,CONTINUE ON HEPARIN GTT INFUSING AT 1450 UNITS/HR CONTINUE PTT DAILY.MIDLINE DRESSING INTACT 7CM OUT.WILL CONTINUE TO MONITOR,BED ALARM AT ALL TIMES.
[2017-04-13] MEDS: PANTOPRAZOLE SODIUM 40 MG TABLET.DR PO SCH ×2 (06:25→16:52)
--- NOTE | 2017-04-13 07:15 | NUR ---
REC'D BEDSIDE SBAR REPORT. PT AWAKE, DENIED ANY DISCOMFORT. HEPAIN DRIP INFUSING VIA IV PUMP
[2017-04-13] MEDS: BLOOD SUGAR DIAGNOSTIC 1 EACH STRIP VI SCH ×4 (07:56→21:14)
[2017-04-13] MEDS: hydrALAZINE HCL 25 MG TABLET PO PRN (08:04)
[2017-04-13] MEDS: NAPHAZOLINE/PHENIR OPHT DROP 15 ML BOTTLE EACHEYE SCH ×2 (09:00→16:56)
--- NOTE | 2017-04-13 09:48 | NUR ---
CALLED [facility] TO REPORT ABNORMAL PT LEVEL OF 85.6, DR BRADLEY KEBEDEED, AN INT/PT LEVEL. THE HEPARIN DRIP WAS LOWERED FRON 1450 UNITS/HR TO 1290 UNITS/HR, [PER PROTOCOL, BASED ON 80KG WT.
[2017-04-13] MEDS: CHLORHEXIDINE GLUCONATE 15 ML MOUTHWASH MM SCH ×2 (10:20→16:56)
[2017-04-13] MEDS: FOLIC ACID 1 MG TABLET PO SCH (10:21)
[2017-04-13] MEDS: FOLIC ACID/VITAMIN B COMP W-C TABLET PO SCH (10:21)
[2017-04-13] MEDS: POTASSIUM CHLORIDE 20 MEQ TAB.PRT.SR PO SCH (10:21)
[2017-04-13] MEDS: FUROSEMIDE 40 MG TABLET PO SCH (10:23)
[2017-04-13] MEDS: LEVETIRACETAM 500 MG TABLET PO SCH ×2 (10:23→21:15)
[2017-04-13] MEDS: METOPROLOL TARTRATE 100 MG TABLET PO SCH ×2 (10:23→21:11)
[2017-04-13] MEDS: FERROUS SULFATE 325 MG TABEC PO SCH ×3 (10:23→16:52)
[2017-04-13] MEDS: NITROGLYCERIN 0.3 MG/HR TD SCH (10:30)
[2017-04-13] MEDS: POLYVINYL ALCOHOL OPHT DROPS 15 ML BOTTLE OP SCH ×2 (10:31→16:56)
[2017-04-13] MEDS: TETRAHYDROZOLINE 0.05% OPHT DR 15 ML BOTTLE EACHEYE PRN (10:31)
[2017-04-13] MEDS: Z GUARD REMEDY PASTE 57 GM TUBE TOP SCH ×2 (10:33→21:11)
[2017-04-13 11:39] VITALS: BP 159/111
--- NOTE | 2017-04-13 11:42 | NUR ---
CALLED DR HUERTA REGARDING, INR=2.00, PT=20.6, DR HUERTA ORDERED THE HEPARIN TO BE DISCONTINUED. ORDER WRITTEN AND FAXED TO PHARMACY, CALLED PHARMACY SPOKE TO RAMON WHOM STAted she would d/c the hepain order from the [facility]. pt's heparin was also stopped and d/c'd from the pt.
--- NOTE | 2017-04-13 14:14 | NUR ---
pharmacy note; iv spreed sheet documented, heparin drip at 0700 to 0948 at the rate of 29 ml/hr, at 0948 heparin decreased to 25.8 ml/hr, then at 1147 heparine drip was stopped and d/c'd.
[2017-04-13] MEDS: WARFARIN SODIUM 4 MG TABLET PO SCH (16:55)
[2017-04-13] MEDS: INSULIN REGULAR, HUMAN 300 UNIT/3 ML VIAL SQ PRN (17:41)
[2017-04-13 18:53] VITALS: BP 145/96
--- NOTE | 2017-04-13 19:20 | NUR ---
bedside sbar report to eliot fleming. pt resting, no distress noted
[2017-04-13 20:00] VITALS: BP 127/84
[2017-04-14] MEDS: IPRATROPIUM BROMIDE 0.5 MG/2.5 ML NEBU IH SCH ×2 (00:59→07:56)
[2017-04-14] MEDS: PANTOPRAZOLE SODIUM 40 MG TABLET.DR PO SCH (06:09)
--- NOTE | 2017-04-14 07:53 | NUR ---
pt slept well overnight,denies any pain or discomfort,had d/cd heparin gtt but still with midline.assisted to bathroom ahd x1 bm. will continue to monitor,vss,afebrile.
[2017-04-14 08:00] VITALS: BP 150/100
[2017-04-14] MEDS: LEVETIRACETAM 500 MG TABLET PO SCH (08:29)
[2017-04-14] MEDS: FOLIC ACID 1 MG TABLET PO SCH (08:29)
[2017-04-14] MEDS: FOLIC ACID/VITAMIN B COMP W-C TABLET PO SCH (08:29)
[2017-04-14] MEDS: METOPROLOL TARTRATE 100 MG TABLET PO SCH (08:29)
[2017-04-14] MEDS: FERROUS SULFATE 325 MG TABEC PO SCH ×2 (08:29→12:35)
[2017-04-14] MEDS: FUROSEMIDE 40 MG TABLET PO SCH (08:29)
[2017-04-14] MEDS: POTASSIUM CHLORIDE 20 MEQ TAB.PRT.SR PO SCH (08:29)
[2017-04-14] MEDS: CHLORHEXIDINE GLUCONATE 15 ML MOUTHWASH MM SCH (08:30)
[2017-04-14] MEDS: POLYVINYL ALCOHOL OPHT DROPS 15 ML BOTTLE OP SCH (08:31)
[2017-04-14] MEDS: TETRAHYDROZOLINE 0.05% OPHT DR 15 ML BOTTLE EACHEYE PRN (08:32)
[2017-04-14] MEDS: NAPHAZOLINE/PHENIR OPHT DROP 15 ML BOTTLE EACHEYE SCH (08:32)
[2017-04-14 08:35] VITALS: BP 150/100
[2017-04-14] MEDS: BLOOD SUGAR DIAGNOSTIC 1 EACH STRIP VI SCH ×2 (08:35→12:35)
[2017-04-14] MEDS: NITROGLYCERIN 0.3 MG/HR TD SCH (08:35)
[2017-04-14] MEDS: Z GUARD REMEDY PASTE 57 GM TUBE TOP SCH (09:48)
--- NOTE | 2017-04-14 15:15 | NUR ---
PT WAS DISCHARGED AT 1330. PT LEFT WITH THE SON AND THE NEPHEW. PT GIVEN DISCHARGE INSTRUCTIONS ALONG WITH PRESCRIPTIONS ORDERED BY DR RODRIGUEZ AND [employer] INSTRUCTIONS SUCH LOW SALT DIET EXERCISE AND SMOKING INSTRUCTIONS. PICTURES TAKEN AND DOCUMENTED. PT GIVEN ACCUCHECK AND IRON SUPPLEMENT SCHEDULED. MIDLINE REMOVED AND APPLIED GAUZE AND TAPE. PT HAD NEW DRESSINGS ON G TUBE SITE. PT VITALS STABLE. NO SIGNS OF ACUTE DISTRESS. [facility] HAD INSTRUCTED SON ABOUT MEDICATIONS. [facility] PHYSICIAN COVERING DR DONNA GOMEZ NOTIFIED ABOUT DISCHARGE. AGREED TO DISCHARGE. DR CARDENAS AGREED TO DISCHARGE. SON TOOK HOME COMMODE HOME PRIOR TO DISCHARGE. SON TOOK HOME WALKER DURING DISCHARGE. PT USED WHEELCHAIR TO EXIT IN FRONT OF HOSPITAL. PT HAD MOD ASSIST HELP IN TRANSFERING FROM WHEELCHAIR TO CAR SEAT. Addendum: 04/14/17 at 1539 by GLORIA KOENIG RN keron also ordered stat pt inr. seen results.
== END 2017-04-14 13:30 | disposition home health service (06) | DRG 56 ==
PROVIDERS: ADMIT Orthopaedic Surgery; ATTEND Physical Medicine & Rehabilitation Pain Medicine
PROC: 2W53XYZ Removal of Other Device on Abdominal Wall (ICD-10-PCS; principal; 2017-04-04)
DX: I69.398 Other sequelae of cerebral infarction (principal); J18.9 Pneumonia, unspecified organism; D68.59 Other primary thrombophilia; E87.0 Hyperosmolality and hypernatremia; I38 Endocarditis, valve unspecified; N17.9 Acute kidney failure, unspecified; Z93.1 Gastrostomy status; R53.1 Weakness; E11.9 Type 2 diabetes mellitus without complications; R27.0 Ataxia, unspecified; I12.9 Hypertensive chronic kidney disease with stage 1 through stage 4 chronic kidney disease, or unspecified chronic kidney disease; N18.9 Chronic kidney disease, unspecified; R13.10 Dysphagia, unspecified; I35.8 Other nonrheumatic aortic valve disorders; I48.0 Paroxysmal atrial fibrillation; R41.89 Other symptoms and signs involving cognitive functions and awareness; D63.8 Anemia in other chronic diseases classified elsewhere; E11.22 Type 2 diabetes mellitus with diabetic chronic kidney disease; E66.9 Obesity, unspecified; Z68.33 Body mass index [BMI] 33.0-33.9, adult; H93.19 Tinnitus, unspecified ear; Z79.01 Long term (current) use of anticoagulants; Z95.2 Presence of prosthetic heart valve; Z87.891 Personal history of nicotine dependence; Z88.6 Allergy status to analgesic agent
CPT/HCPCS: 36415; 70030-TC; 70450; 71010; 82306; 82652; 83550; 83735; 83970; 84100; 85025; 85610; 85730; 92507; 92523; 92526; 92610; 93307; 94640; 94664; 97110; 97112; 97116; 97161; 97530; 97535; A4217; A9150; J0885; J1644; J1815; J2543; J3590

== ENCOUNTER 2024-02-28 08:21 | Day surgery (SDC) | payer MEDICARE, OTHER ==
[~2024-02-28 08:21] MED LIST: ACET-2154 PEG; AMIO200T5 PEG; AMLO10TA59 PEG; AMPI3VIA5 IVP; CHLO15MO MM; CLON0.1T PEG; CLON0.2T PEG; DARB40VI SQ; FERR220S16 GT; FOLI0.8T2 GT; FOLI1TAB94 PEG; FURO80TA3 PEG; HYDR-3326 PEG; HYDR100T27 PEG; HYDR118S4 TP; INSU100V28; IPRA0.2S48 IH; LANS30CA56 PEG; LEVE500T20 PEG; LISI10TA29 PEG; METO100T14 PEG; NAPH15DR EACHEYE; NITR1PAT8 TD; NUT.237L67 GT; NYST30OI TP; POLY15DR27 OP; POTA10TA15 PEG; TETR15DR86 EACHEYE; WARF7.5T49 PEG; ZINC30OI4 TP
[2024-02-28] MEDS ORDERED: ACETAMINOPHEN ES 500 MG TABLET PO ONE (08:30)
[2024-02-28] MEDS ORDERED: GABAPENTIN 300 MG CAPSULE PO ONE (08:30)
[2024-02-28] MEDS ORDERED: GABAPENTIN 300 MG CAPSULE ONE (08:35)
[2024-02-28] MEDS ORDERED: ACETAMINOPHEN ES 500 MG TABLET ONE (08:36)
[2024-02-28 08:59] LABS: BASOPHILS # (AUTO) 0.1 K/UL (0.0-0.2); BASOPHILS % (AUTO) 1.1 % (0.0-2.0); EOSINOPHILS # (AUTO) 0.1 K/uL (0.0-0.7); EOSINOPHILS % (AUTO) 1.7 % (0.0-7.0); HEMATOCRIT 38.6 % (36.7-47.1); HEMOGLOBIN 13.4 g/dL (12.5-16.3); LYMPHOCYTES % (AUTO) 15.1 % (20.5-51.5); MEAN CORPUSCULAR HEMOGLOBIN 31.2 uug (23.8-33.4); MEAN CORPUSCULAR HGB CONC 35 g/dL (32.5-36.3); MEAN CORPUSCULAR VOLUME 89.7 fL (73.0-96.2); MONOCYTES # (AUTO) 0.5 K/uL (0.1-1.30); MONOCYTES % (AUTO) 7.6 % (0.0-11.0); NEUTROPHILS # (AUTO) 4.8 K/uL (1.8-8.9); NEUTROPHILS % (AUTO) 74.5 % (38.5-71.5); PLATELET COUNT (AUTO) 299 K/uL (152-348); RED CELL DISTRIBUTION WIDTH 14.3 % (12.1-16.2); WHITE BLOOD COUNT (AUTO) 6.5 K/uL (3.6-10.2)
[2024-02-28 09:27] LABS: DIFFERENTIAL COMMENT 1
[2024-02-28 10:07] LABS: *BILIRUBIN,URIN NEGATIVE (NEGATIVE); *BLOOD, URINE NEGATIVE (NEGATIVE); *CLARITY,URINE CLEAR (CLEAR); *COLOR,URINE YELLOW (YELLOW); *KETONES,URINE NEGATIVE (NEGATIVE); *PROTEIN,URINE 2+ (NEGATIVE); *UROBILINOGEN,URINE 0.2 E.U./dl (NORMAL); LEUKOCYTE ESTERASE ,URINE NEGATIVE (NEGATIVE); NITRITE, URINE NEGATIVE (NEGATIVE); UGLUCOSE NEGATIVE (NEGATIVE)
[2024-02-28 10:12] LABS: ALANINE AMINOTRANSFERASE 98 U/L (16-63); ALBUMIN 3.4 g/dL (3.4-5.0); ALKALINE PHOSPHATASE 72 U/L (50-136); ASPARTATE AMINOTRANSFERASE 60 U/L (15-37); BILIRUBIN,TOTAL 0.6 mg/dL (0.2-1.0); CALCIUM 8.8 mg/dL (8.5-10.1); CARBON DIOXIDE 26 mmol/L (21-32); CHLORIDE 107 mmol/L (98-107); CREATININE 1.9 mg/dL (0.6-1.3); GLUCOSE 112 mg/dL (74-106); POTASSIUM 3.5 mmol/L (3.5-5.1); SODIUM SERUM 142 mmol/L (136-145); TOTAL PROTEIN, SERUM 7.3 g/dL (6.4-8.2); UREA NITROGEN, BLOOD 32 mg/dL (7-18)
[2024-02-28 10:27] LABS: BACTERIA,URINE NONE SEEN /HPF (NONE SEEN); SQUAMOUS EPITHELIAL CELL,UR FEW /HPF (NONE SEEN); WBC,URINE 0-3 /HPF (0-3)
[2024-02-28] MEDS ORDERED: SUCCINYLCHOLINE CHLORIDE 200 MG/10 ML VIAL ONE (10:28)
[2024-02-28] MEDS ORDERED: FENTANYL CITRATE 100 MCG/2 ML AMPUL ONE (10:28)
[2024-02-28] MEDS ORDERED: MIDAZOLAM HCL 2 MG/2 ML VIAL ONE (10:28)
[2024-02-28] MEDS ORDERED: LIDOCAINE 1%-EPI 1:100,000 20 ML VIAL ONE (10:34)
[2024-02-28] MEDS ORDERED: BACITRACIN/POLYMYXIN B OINT 15 GM TUBE ONE (10:35)
[2024-02-28] MEDS ORDERED: BUPIVACAINE 0.25% 30 ML VIAL ONE (10:35)
[2024-02-28] MEDS ORDERED: CELECOXIB 200 MG CAPSULE PO ONE (13:00)
[2024-02-28] MEDS ORDERED: GABAPENTIN 100 MG CAPSULE PO ONE (13:15)
[2024-02-28] MEDS ORDERED: ACETAMINOPHEN 325 MG TABLET PO ONE (13:15)
[2024-02-28] MEDS ORDERED: ACETAMINOPHEN 325 MG TABLET ONE (13:46)
[2024-02-28 13:55] VITALS: TEMP 97.3
[2024-02-28] MEDS ORDERED: IBUPROFEN 800 MG TABLET ONE (14:07)
[2024-02-28] MEDS ORDERED: IBUPROFEN 800 MG TABLET PO ONE (14:15)
== END 2024-02-28 15:10 | disposition home or self-care (01) ==
LOC: DS 08:21
PROVIDERS: ATTEND Surgery
DX: K40.31 Unilateral inguinal hernia, with obstruction, without gangrene, recurrent (principal); I13.2 Hypertensive heart and chronic kidney disease with heart failure and with stage 5 chronic kidney disease, or end stage renal disease; E11.22 Type 2 diabetes mellitus with diabetic chronic kidney disease; N18.6 End stage renal disease; E03.9 Hypothyroidism, unspecified; I25.10 Atherosclerotic heart disease of native coronary artery without angina pectoris; E78.5 Hyperlipidemia, unspecified; Z86.73 Personal history of transient ischemic attack (TIA), and cerebral infarction without residual deficits; I50.9 Heart failure, unspecified; F17.210 Nicotine dependence, cigarettes, uncomplicated; Z99.2 Dependence on renal dialysis; Z79.01 Long term (current) use of anticoagulants; Z79.4 Long term (current) use of insulin; Z79.899 Other long term (current) drug therapy; Z98.890 Other specified postprocedural states; Z88.8 Allergy status to other drugs, medicaments and biological substances
CPT/HCPCS: 36415; 49521; 71045; 80053; 81001; 85025; 85730; C1781; J0330; J2250; J3010; J3490; J7120; A4649; A4663; A9150